=== PATIENT | female | born 1955 | race Two or more races ===

== ENCOUNTER 2016-10-21 02:59 | Inpatient (IN) | payer BC ==
[2016-10-21] MEDS ORDERED: ONDANSETRON HCL INJ/PF 4 MG/2 ML SDV IV ONE ×2 (03:49→07:10)
[2016-10-21] MEDS ORDERED: NORMAL SALINE 1000 ML 1,000 ML IV ONE (03:49)
[2016-10-21] MEDS ORDERED: MORPHINE SULFATE 10 MG/ML INJ IV ONE (03:49)
[2016-10-21 04:27] LABS: ABSOLUTE BASOPHILS # (AUTO) 0.1 10^3/uL (0.0-0.2); ABSOLUTE MONOCYTES (AUTO) 0.7 10^3/uL (0.1-1.4); ABSOLUTE NEUT (AUTO) 14.3 10^3/uL (1.7-8.2); BASOPHILS % (AUTO) 0.4 % (0-2); EOSINOPHILS % (AUTO) 0.2 % (0-6); HEMATOCRIT 46.4 % (36.0-47.0); HEMOGLOBIN 15.7 g/dL (12.0-15.5); HGB HCT DIFFERENCE 0.7; LYMPHOCYTES % (AUTO) 5.9 % (13-45); MEAN CORPUSCULAR HEMOGLOBIN 30.3 pg (27.0-33.4); MEAN CORPUSCULAR HGB CONC 33.9 g/dL (32.0-36.0); MEAN CORPUSCULAR VOLUME 89 fl (80-97); MONOCYTES % (AUTO) 4.4 % (3-13); RED BLOOD COUNT 5.19 10^6/uL (3.72-5.28); RED CELL DISTRIBUTION WIDTH 13.2 % (11.5-14.0); SEGMENTED NEUTROPHILS % (AUTO) 89.1 % (42-78); WHITE BLOOD COUNT 16.1 10^3/uL (4.0-10.5)
--- NOTE | 2016-10-21 04:39 | ER Document Report ---
ED GI/ - General TRAVEL OUTSIDE OF THE [place] IN LAST 30 DAYS: No <NIDHI MATOS - Last Filed: 10/21/16 07:18> <LAURA MACK - Last Filed: 10/21/16 09:22> - General Chief Complaint: Abdominal Pain Stated Complaint: ABDOMINAL PAIN Notes: Patient is a 60-year-old female that comes emergency department for chief complaint of sharp lower abdominal pain with nausea and vomiting 2, patient states she awoke from sleep tonight with the pain. Patient denies any fever or chills, states she had a normal bowel movement earlier today. Patient denies blood in the vomit. Patient has had a total hysterectomy, past medical history of hypertension, melanoma removal. (NIDHI MATOS) - Related Data Allergies/Adverse Reactions: No Known Drug Allergies Allergy (Verified 03/10/15 12:41) Past Medical History - General Information source: Patient - Social History Smoking Status: Never Smoker Frequency of alcohol use: None Lives with: Alone Family History: Arthritis, Malignancy Patient has suicidal ideation: No Patient has homicidal ideation: No - Past Medical History Cardiac Medical History: Reports: Hx Hypertension Denies: Hx Coronary Artery Disease, Hx Heart Attack Pulmonary Medical History: Denies: Hx Asthma, Hx Bronchitis, Hx COPD, Hx Pneumonia Neurological Medical History: Denies: Hx Cerebrovascular Accident, Hx Seizures Renal/ Medical History: Denies: Hx Peritoneal Dialysis Malignancy Medical History: Reports: Hx Cervical Cancer, Hx Skin Cancer - melanoma Musculoskeltal Medical History: Reports Hx Arthritis - GENERALIZED , Reports Hx Musculoskeletal Trauma Past Surgical History: Reports: Hx Hysterectomy. Denies: Hx Pacemaker - Immunizations Immunizations up to date: Yes Hx Diphtheria, Pertussis, Tetanus Vaccination: Yes <NIDHI MATOS - Last Filed: 10/21/16 07:18> Review of Systems - Review of Systems Constitutional: No symptoms reported EENT: No symptoms reported Cardiovascular: No symptoms reported Respiratory: No symptoms reported Gastrointestinal: See HPI Genitourinary: No symptoms reported Female Genitourinary: No symptoms reported Musculoskeletal: No symptoms reported Skin: No symptoms reported Hematologic/Lymphatic: No symptoms reported Neurological/Psychological: No symptoms reported <NIDHI MATOS - Last Filed: 10/21/16 07:18> Physical Exam - Vital signs Interpretation: Normal - General General appearance: Alert, Anxious In distress: Moderate - Patient holding her abdomen, rolled onto her side, appears to be in pain - HEENT Head: Normocephalic, Atraumatic Eyes: Normal Conjunctiva: Normal Extraocular movements intact: Yes Eyelashes: Normal Pupils: PERRL Sinus: Normal Nasal: Normal Mouth/Lips: Normal Mucous membranes: Dry Pharynx: Normal Neck: Normal - Respiratory Respiratory status: No respiratory distress Chest status: Nontender Breath sounds: Normal Chest palpation: Normal - Cardiovascular Rhythm: Regular, Tachycardia Heart sounds: Normal auscultation, S1 appreciated, S2 appreciated Murmur: No - Abdominal Inspection: Normal Distension: No distension Bowel sounds: Normal Tenderness: Tender - Patient has mild tenderness over the abdomen generally, she has specific guarding at McBurney's point, no rebound tenderness, McBurney' s point - Back Back: Normal, Nontender. No: Tender, CVA tenderness - Extremities General upper extremity: Normal inspection, Nontender, Normal ROM, Normal strength General lower extremity: Normal inspection, Nontender, Normal ROM, Normal strength - Neurological Neuro grossly intact: Yes Cognition: Normal Orientation: AAOx4 Judith Coma Scale Eye Opening: Spontaneous Judith Coma Scale Verbal: Oriented Judith Coma Scale Motor: Obeys Commands Judith Coma Scale Total: 15 Speech: Normal Motor strength normal: LUE, RUE, LLE, RLE Sensory: Normal - Psychological Associated symptoms: Agitated - Skin Skin Temperature: Warm Skin Moisture: Dry Skin Color: Normal <NIDHI MATOS - Last Filed: 10/21/16 07:18> Course - Laboratory Result Diagrams: 10/21/16 04:15 10/21/16 04:15 <NIDHI MATOS - Last Filed: 10/21/16 07:18> - Laboratory Result Diagrams: 10/21/16 04:15 10/21/16 04:15 <LAURA MACK - Last Filed: 10/21/16 09:22> - Re-evaluation Re-evalutation: Leukocytosis at 16.1 with elevation of neutrophils, chemistry unremarkable other than mild hyperglycemia, urinalysis is still pending. Patient with generalized tenderness of the abdomen except for specific right lower quadrant tenderness at McBurney's point, concern for possible appendicitis , CAT scan pending. Discussed with Dr. Hunt per [facility] guidelines. Patient very comfortable on reevaluation, states she feels great. 10/21/16 07:18 Introduced to Laura SAHWP at bedside, patient states she became nauseated and vomited once, given more Zofran, patient will go to CAT scan soon. Pending disposition based on CAT scan findings. (NIDHI MATOS) 10/21/16 08:35 Patient hemodynamically stable, in no distress. States nausea/vomiting improved after Zofran. CT scan of abdomen and pelvis shows concern for ileus or small bowel obstruction. Patient presentation and findings were discussed with surgeon Dr. Huddlesotn who recommends NG tube insertion and agrees to evaluate patient in the emergency department and assume care of patient/admit to inpatient unit. Findings and plan discussed with patient who verbalized understanding and agrees with plan. (LAURA MACK) - Vital Signs Vital signs: Temp Pulse Resp BP Pulse Ox 97.3 F 127 H 25 H 145/99 H 98 10/21/16 03:02 10/21/16 03:02 10/21/16 03:02 10/21/16 03:02 10/21/16 03:02 (NIDHI MATOS) ([facility]) - Laboratory Laboratory results interpreted by me: 10/21/16 10/21/16 10/21/16 04:15 04:15 07:05 WBC 16.1 H Hgb 15.7 H Seg Neutrophils % 89.1 H Lymphocytes % 5.9 L Absolute Neutrophils 14.3 H Glucose 184 H Urine Ketones TRACE H Urine Ascorbic Acid 40 H (NIDHI MATOS) ([facility]) Discharge <NIDHI MATOS - Last Filed: 10/21/16 07:18> - Discharge Admitting Provider: Surgicalist - [facility] Unit Admitted: Surgical Floor <LAURA MACK - Last Filed: 10/21/16 09:22> - Discharge Clinical Impression: Vomiting Qualifiers: Vomiting type: unspecified Vomiting Intractability: non-intractable Nausea presence: with nausea Qualified Code(s): R11.2 - Nausea with vomiting, unspecified Abdominal pain Qualifiers: Abdominal location: right lower quadrant Qualified Code(s): R10.31 - Right lower quadrant pain Condition: Stable Disposition: ADMITTED INPATIENT Referrals: CORNEL ERIC MD [Primary Care Provider] - Follow up as needed
[2016-10-21 04:41] LABS: ALANINE AMINOTRANSFERASE 36 U/L (9-52); ALBUMIN 4.8 g/dL (3.5-5.0); ALKALINE PHOSPHATASE 86 U/L (38-126); ANION GAP 15 (5-19); ASPARTATE AMINO TRANSFERASE 26 U/L (14-36); BILIRUBIN,TOTAL 0.8 mg/dL (0.2-1.3); BLOOD UREA NITROGEN 18 mg/dL (7-20); CALCIUM 10.2 mg/dL (8.4-10.2); CARBON DIOXIDE 24 mmol/L (22-30); CHLORIDE 103 mmol/L (98-107); CREATININE RESULT 0.88 mg/dL (0.52-1.25); GLUCOSE 184 mg/dL (75-110); POTASSIUM 4.6 mmol/L (3.6-5.0); SODIUM 141.6 mmol/L (137-145); TOTAL PROTEIN 7.9 g/dL (6.3-8.2)
[2016-10-21 07:47] LABS: APPEARANCE,URINE SLIGHTLY-CLOUDY; BILIRUBIN,URINE NEGATIVE (NEGATIVE); GLUCOSE, URINE NEGATIVE (NEGATIVE); KETONES,URINE TRACE mg/dL (NEGATIVE); LEUKOCYTE ESTERASE,URINE NEGATIVE (NEGATIVE); NITRITE,URINE NEGATIVE (NEGATIVE); PROTEIN,URINE NEGATIVE (NEGATIVE); URINE SPECIFIC GRAVITY 1.025; UROBILINOGEN,URINE NEGATIVE mg/dL (<2.0)
--- NOTE | 2016-10-21 09:13 | PDOC H&P ---
History of Present Illness Admission Date/PCP: CORNEL ERIC MD Patient complains of: Abdominal pain and nausea or vomiting History of Present Illness: SADIE VILLA is a 60 year old female With history of total abdominal hysterectomy and bilateral Springle for ectomy for cervical cancer over 10 years ago now presenting with one-day history of abdominal bloating with nausea and vomiting and crampy abdominal pain. Her symptoms began late last night. She had a bowel movement that was normal earlier in the day. Patient apparently has been feeling well up until last night. Denies any prior history of this sort of symptoms. Currently she is asymptomatic with no abdominal pain and she is passing gas. Past Medical History Cardiac Medical History: Reports: Hyperlipidema, Hypertension Denies: Coronary Artery Disease, Myocardial Infarction Pulmonary Medical History: Denies: Asthma, Bronchitis, Chronic Obstructive Pulmonary Disease (COPD), Pneumonia Neurological Medical History: Denies: Seizures Malignancy Medical History: Reports: Cervical Cancer, Skin Cancer - melanoma of the left arm 20 year ago. Patient underwent vaccine treatment. Musculoskeltal Medical History: Reports: Arthritis - GENERALIZED Hematology: Denies: Anemia Past Surgical History Past Surgical History: Reports: Hysterectomy, Orthopedic Surgery - Right rotator cuff surgery and left the knee meniscal surgery Denies: Pacemaker Social History Lives with: Alone Smoking Status: Former Smoker - Quit in 2005. Frequency of Alcohol Use: Rare Family History Family History: Arthritis, Malignancy Parental Family History Reviewed: No Children Family History Reviewed: No Sibling(s) Family History Reviewed.: No Medication/Allergy Home Medications: Lisinopril [Prinivil 20 mg Tablet] 20 mg PO QHS 04/27/12 Diphenhydramine HCl [Z-Sleep] 30 ml PO QHS PRN 03/06/15 Famotidine [Pepcid AC] 1 tab PO DAILY PRN 03/06/15 Gluc 2Kcl/Chondr/Lily Hy/Hy AC [Glucosamine & Chondroitin Cap] 2 cap PO BID 10/20 Loratadine [Claritin 10 mg Tablet] 1 tab PO DAILY 03/06/15 Multivitamin [Multivitamins] 2 tab PO DAILY 03/06/15 Ondansetron [Zofran Odt 4 mg Tablet] 1 tab PO ASDIR PRN 03/10/15 Oxycodone HCl 5 mg PO ASDIR PRN 03/10/15 Allergies/Adverse Reactions: No Known Drug Allergies Allergy (Verified 03/10/15 12:41) Physical Exam Vital Signs: Temp Pulse Resp BP Pulse Ox 97.3 F 127 H 25 H 145/99 H 98 10/21/16 03:02 10/21/16 03:02 10/21/16 03:02 10/21/16 03:02 10/21/16 03:02 Intake & Output 10/20/16 10/21/16 10/22/16 06:59 06:59 06:59 Weight 68.039 kg General appearance: PRESENT: no acute distress Neck exam: PRESENT: other - Supple with no tenderness. Respiratory exam: PRESENT: clear to auscultation dionte Cardiovascular exam: PRESENT: RRR GI/Abdominal exam: PRESENT: other - Soft, mildly distended, very mild diffuse abdominal tenderness with no peritoneal signs. Hyperactive high-pitched bowel sounds. Extremities exam: PRESENT: other - No swelling no tenderness Neurological exam: PRESENT: alert, awake Psychiatric exam: PRESENT: appropriate affect Skin exam: PRESENT: warm Results Laboratory Results: 10/21/16 04:15 10/21/16 04:15 10/21/16 10/21/16 10/21/16 04:15 04:15 07:05 WBC 16.1 H RBC 5.19 Hgb 15.7 H Hct 46.4 MCV 89 MCH 30.3 MCHC 33.9 RDW 13.2 Plt Count 255 Seg Neutrophils % 89.1 H Lymphocytes % 5.9 L Monocytes % 4.4 Eosinophils % 0.2 Basophils % 0.4 Absolute Neutrophils 14.3 H Absolute Lymphocytes 1.0 Absolute Monocytes 0.7 Absolute Eosinophils 0.0 Absolute Basophils 0.1 Sodium 141.6 Potassium 4.6 Chloride 103 Carbon Dioxide 24 Anion Gap 15 BUN 18 Creatinine 0.88 Est GFR ( Amer) > 60 Est GFR (Non-Af Amer) > 60 Glucose 184 H Calcium 10.2 Total Bilirubin 0.8 AST 26 ALT 36 Alkaline Phosphatase 86 Total Protein 7.9 Albumin 4.8 Urine Color YELLOW Urine Appearance SLIGHTLY-CLOUDY Urine pH 6.0 Ur Specific [place] 1.025 Urine Protein NEGATIVE Urine Glucose (UA) NEGATIVE Urine Ketones TRACE H Urine Blood NEGATIVE Urine Nitrite NEGATIVE Ur Leukocyte Esterase NEGATIVE Urine WBC (Auto) 1 Urine RBC (Auto) 1 Impressions: Abdomen/Pelvis CT 10/21/16 00:00 IMPRESSION: Ileus or partial small bowel obstruction. Assessment & Plan - Diagnosis (1) Partial small bowel obstruction Is this a current diagnosis for this admission?: YesPlan: May already be resolving. Will hold off NG tube since she is passing gas and she has minimal symptoms at this time. Will admit the patient placed on IV fluids. If she has recurrent emesis will place NG tube.
[2016-10-21] MEDS ORDERED: ENOXAPARIN SODIUM INJ 40 MG/0.4 ML DISP.SYRIN SUBCUT ONE (10:00)
[2016-10-21] MEDS ORDERED: ACETAMINOPHEN 325 MG TABLET ONE (11:39)
[2016-10-21] MEDS: FAMOTIDINE INJ/PF 20 MG/2 ML SDV IV SCH ×2 (11:57→21:03)
[2016-10-21] MEDS ORDERED: ACETAMINOPHEN 325 MG TABLET PO PRN (12:13)
[2016-10-21] MEDS: ONDANSETRON 4 MG TAB.RAPDIS PO PRN ×2 (14:12→18:40)
[2016-10-21] MEDS: DEXTROSE 5%-1/2 NORMAL SALINE 1,000 ML IV PRN (15:11)
--- NOTE | 2016-10-21 16:30 | PDOC PROGRESS REPORT ---
Subjective Progress Note for:: 10/21/16 Subjective:: Had nausea and vomiting but no abdominal pain. NG tube place since she was vomiting. Passing a little bit of gas. Physical Exam Vital Signs: Temp Pulse Resp BP Pulse Ox 97.8 F 83 18 122/65 99 10/21/16 11:26 10/21/16 11:26 10/21/16 11:26 10/21/16 11:26 10/21/16 11:26 Intake & Output 10/20/16 10/21/16 10/22/16 06:59 06:59 06:59 Weight 69.5 kg GI/Abdominal exam: PRESENT: other - Soft, mildly distended, nontender to palpation. Results Impressions: Abdomen/Pelvis CT 10/21/16 00:00 IMPRESSION: Ileus or partial small bowel obstruction. KUB X-Ray 10/21/16 00:00 IMPRESSION: Contrast is visualized throughout the colon. Mild small-bowel distention centrally. The small bowel distention appears improved when compared to images from the CT done earlier the same day. Assessment & Plan - Diagnosis (1) Partial small bowel obstruction Is this a current diagnosis for this admission?: YesPlan: KUB demonstrates passage of contrast into the colon therefore low-grade partial small bowel obstruction at worst. Will keep the NG tube to suction overnight repeat her x-rays in the morning. Ambulate patient.
[2016-10-21] MEDS: MORPHINE SULFATE 10 MG/ML INJ IV PRN (19:41)
[2016-10-22] MEDS: DEXTROSE 5%-1/2 NORMAL SALINE 1,000 ML IV PRN ×2 (01:11→22:26)
[2016-10-22] MEDS: ONDANSETRON 4 MG TAB.RAPDIS PO PRN (01:11)
[2016-10-22 06:35] LABS: ANION GAP 8 (5-19); BLOOD UREA NITROGEN 7 mg/dL (7-20); CALCIUM 8.7 mg/dL (8.4-10.2); CARBON DIOXIDE 26 mmol/L (22-30); CHLORIDE 107 mmol/L (98-107); CREATININE RESULT 0.77 mg/dL (0.52-1.25); GLUCOSE 129 mg/dL (75-110); POTASSIUM 4.2 mmol/L (3.6-5.0)
[2016-10-22 06:40] LABS: HEMATOCRIT 39.2 % (36.0-47.0); HGB HCT DIFFERENCE 0.1; MEAN CORPUSCULAR HGB CONC 33.5 g/dL (32.0-36.0); MEAN CORPUSCULAR VOLUME 90 fl (80-97); RED BLOOD COUNT 4.38 10^6/uL (3.72-5.28); RED CELL DISTRIBUTION WIDTH 12.9 % (11.5-14.0); WHITE BLOOD COUNT 8.5 10^3/uL (4.0-10.5)
[2016-10-22 06:46] LABS: HEMOGLOBIN 13.1 g/dL (12.0-15.5)
[2016-10-22] MEDS: ENOXAPARIN SODIUM INJ 40 MG/0.4 ML DISP.SYRIN SUBCUT SCH (10:03)
[2016-10-22] MEDS: FAMOTIDINE INJ/PF 20 MG/2 ML SDV IV SCH ×2 (10:04→22:25)
--- NOTE | 2016-10-22 16:26 | PDOC PROGRESS REPORT ---
Subjective Subjective:: +bm, flatus. still having some nausea and retching, thinks its from the NG rubbing on her tonsils. Physical Exam Vital Signs: Temp Pulse Resp BP Pulse Ox 98.2 F 92 17 146/86 H 99 10/22/16 12:40 10/22/16 12:40 10/22/16 12:40 10/22/16 12:40 10/22/16 12:40 Intake & Output 10/21/16 10/22/16 10/23/16 06:59 06:59 06:59 Intake Total 0 1350 Output Total 3 Balance -3 1350 Weight 76 kg General appearance: PRESENT: no acute distress Head exam: PRESENT: normocephalic GI/Abdominal exam: PRESENT: normal bowel sounds, soft. ABSENT: distended, tenderness Neurological exam: PRESENT: alert, oriented to situation Psychiatric exam: PRESENT: appropriate affect, normal mood Results Laboratory Results: 10/22/16 05:57 10/22/16 05:57 10/22/16 10/22/16 05:57 05:57 WBC 8.5 RBC 4.38 Hgb 13.1 D Hct 39.2 MCV 90 MCH 30.0 MCHC 33.5 RDW 12.9 Plt Count 192 Sodium 141.0 Potassium 4.2 Chloride 107 Carbon Dioxide 26 Anion Gap 8 BUN 7 Creatinine 0.77 Est GFR ( Amer) > 60 Est GFR (Non-Af Amer) > 60 Glucose 129 H Calcium 8.7 Impressions: Abdomen/Pelvis CT 10/21/16 00:00 IMPRESSION: Ileus or partial small bowel obstruction. KUB X-Ray 10/21/16 00:00 IMPRESSION: Contrast is visualized throughout the colon. Mild small-bowel distention centrally. The small bowel distention appears improved when compared to images from the CT done earlier the same day. Abdomen X-Ray 10/22/16 06:00 IMPRESSION: Nonobstructive bowel gas pattern Status: Image reviewed by me Assessment & Plan - Diagnosis (1) Partial small bowel obstruction Is this a current diagnosis for this admission?: YesPlan: labs, film, exam better. +bm/flatus. NG removed. start clear liquids.
[2016-10-23] MEDS: ENOXAPARIN SODIUM INJ 40 MG/0.4 ML DISP.SYRIN SUBCUT SCH (08:46)
[2016-10-23] MEDS: MORPHINE SULFATE 10 MG/ML INJ IV PRN ×2 (09:02→12:33)
[2016-10-23] MEDS: ONDANSETRON 4 MG TAB.RAPDIS PO PRN ×2 (09:03→12:32)
[2016-10-23] MEDS: FAMOTIDINE INJ/PF 20 MG/2 ML SDV IV SCH ×2 (09:06→21:19)
[2016-10-23] MEDS: SIMETHICONE 80 MG TAB.CHEW PO PRN ×3 (10:41→23:49)
[2016-10-23] MEDS: DICYCLOMINE HCL 10 MG CAPSULE PO PRN ×3 (10:41→23:49)
[2016-10-23] MEDS ORDERED: MORPHINE SULFATE 10 MG/ML INJ IV PRN (13:00)
[2016-10-23] MEDS: DEXTROSE 5%-1/2 NORMAL SALINE 1,000 ML IV PRN (15:00)
[2016-10-23] MEDS ORDERED: HYDROMORPHONE HCL INJ/PF 2 MG/ML AMPULE IV PRN (15:34)
--- NOTE | 2016-10-23 15:53 | PDOC PROGRESS REPORT ---
Subjective Subjective:: Small BM this morning. Also had some nausea and vomiting after the pain medication. Wondering if she is reacting to they morphine. and the daughter via the are asking about hydromorphone. Had severe crampy gas pains earlier which was migratory throughout her abdomen. Physical Exam Vital Signs: Temp Pulse Resp BP Pulse Ox 97.8 F 70 18 148/88 H 100 10/23/16 12:00 10/23/16 12:00 10/23/16 12:00 10/23/16 12:00 10/23/16 12:00 Intake & Output 10/22/16 10/23/16 10/24/16 06:59 06:59 06:59 Intake Total 100 2032 Balance 100 2032 Weight 70.3 kg General appearance: PRESENT: no acute distress Head exam: PRESENT: normocephalic GI/Abdominal exam: PRESENT: soft, tenderness - Minimal midabdominal tenderness, otherwise benign. Some bowel sounds.. ABSENT: distended Neurological exam: PRESENT: alert, oriented to situation Skin exam: ABSENT: jaundice Results Impressions: KUB X-Ray 10/23/16 00:00 IMPRESSION: Single borderline dilated small bowel loop in the mid epigastrium. Oral contrast for CT 10/21/2016 is otherwise seen in the colon Status: Image reviewed by me Assessment & Plan - Diagnosis (1) Partial small bowel obstruction Is this a current diagnosis for this admission?: YesPlan: Nausea and retching after morphine, we will discontinue this and switch to dilated. Was ambulating. Had a small BM. She is burping some. Her crampy abdominal pain from earlier has resolved. Caution to go slow with her diet. Labs in the morning. Great amount of time spent again today discussing pathophysiology of small bowel obstructions, answering questions, discussing imaging studies.
[2016-10-24] MEDS ORDERED: NALOXONE HCL INJ/PF 0.4 MG/1 ML SDV ONE (03:53)
[2016-10-24] MEDS ORDERED: PHENYLEPHRINE HCL INJ/PF 10 MG/1 ML SDV ONE ×3 (03:58→15:12)
[2016-10-24] MEDS ORDERED: DEXTROSE 5%-WATER 250 ML with PHENYLEPHRINE HCL 40 MG IV PRN ×2 (04:11)
[2016-10-24] MEDS ORDERED: NALOXONE HCL INJ/PF 0.4 MG/1 ML SDV IV ONE (04:15)
[2016-10-24] MEDS ORDERED: RINGERS SOLUTION,LACTATED 3,000 ML IV ONE (04:15)
[2016-10-24 04:27] LABS: HEMATOCRIT 27.4 % (36.0-47.0); HGB HCT DIFFERENCE -0.7; MEAN CORPUSCULAR HEMOGLOBIN 29.7 pg (27.0-33.4); MEAN CORPUSCULAR HGB CONC 32.3 g/dL (32.0-36.0); MEAN CORPUSCULAR VOLUME 92 fl (80-97); RED BLOOD COUNT 2.98 10^6/uL (3.72-5.28); RED CELL DISTRIBUTION WIDTH 13.1 % (11.5-14.0)
[2016-10-24 04:33] LABS: PROTHROMBIN TIME 14.3 SEC (11.4-15.4)
[2016-10-24 04:41] LABS: ALANINE AMINOTRANSFERASE 39 U/L (9-52); ALBUMIN 2.5 g/dL (3.5-5.0); ALKALINE PHOSPHATASE 53 U/L (38-126); ANION GAP 14 (5-19); ASPARTATE AMINO TRANSFERASE 32 U/L (14-36); BILIRUBIN,TOTAL 0.6 mg/dL (0.2-1.3); BLOOD UREA NITROGEN 8 mg/dL (7-20); CALCIUM 8.3 mg/dL (8.4-10.2); CARBON DIOXIDE 19 mmol/L (22-30); CHLORIDE 104 mmol/L (98-107); CREATININE RESULT 1.23 mg/dL (0.52-1.25); GLUCOSE 246 mg/dL (75-110); LIPASE 66.7 U/L (23-300); POTASSIUM 3.4 mmol/L (3.6-5.0); TOTAL PROTEIN 5.3 g/dL (6.3-8.2)
[2016-10-24 04:42] LABS: AMYLASE < 30 U/L (30-110)
[2016-10-24 04:46] LABS: ARTERIAL BLOOD BASE EXCESS -6.6 mmol/L; ARTERIAL BLOOD O2 SATURATION 99.1 % (94-98)
[2016-10-24 04:53] LABS: WHITE BLOOD COUNT 21.4 10^3/uL (4.0-10.5)
[2016-10-24 04:54] LABS: HEMOGLOBIN 8.9 g/dL (12.0-15.5)
[2016-10-24] MEDS ORDERED: FENTANYL CITRATE INJ/PF 250 MCG/5 ML AMPULE ONE ×2 (05:06→06:48)
[2016-10-24] MEDS ORDERED: MIDAZOLAM 2 MG/2 ML INJ ONE (05:06)
[2016-10-24] MEDS ORDERED: MORPHINE SULFATE 10 MG/ML INJ ONE (05:07)
[2016-10-24] MEDS ORDERED: EPHEDRINE SULFATE INJ 50 MG/1 ML AMPULE ONE (05:07)
[2016-10-24] MEDS ORDERED: PROPOFOL INJ 200 MG/20 ML VIAL IV ONE (05:07)
[2016-10-24] MEDS ORDERED: ACETAMINOPHEN 0 ML IV ONE (05:07)
[2016-10-24] MEDS ORDERED: DEXMEDETOMIDINE INJ 80 MCG/20 ML VIAL IV ONE (05:07)
[2016-10-24] MEDS ORDERED: AMPICILLIN SOD/SULBACTAM 1.5 GM VIAL ONE (05:27)
[2016-10-24] MEDS ORDERED: THROMBIN (BOVINE) TOPICAL 5000 UNIT VIAL ONE ×2 (06:36)
[2016-10-24] MEDS ORDERED: THROMBIN (BOVINE) 5000 UNIT EPITAXIS KIT ONE (06:36)
[2016-10-24] MEDS ORDERED: THROMBIN (BOVINE) TOPICAL 20000 UNIT VIAL ONE (06:36)
[2016-10-24 06:43] VITALS: BP 95/56
--- NOTE | 2016-10-24 10:05 | Operative Report ---
Operative Report DATE OF SURGERY: 10/24/16 PREOPERATIVE DIAGNOSIS: Shock, Probable major abdominal bleed. POSTOPERATIVE DIAGNOSIS: 1. Shock. 2. Intra-abdominal bleed from the vasculature near the root of the mesenteric vessels and the vasculature of the pancreaticoduodenal complex. 3. Massive retroperitoneal hematoma. OPERATION: Exploratory laparotomy with ligation of major bleeding from the vasculature near the root of the mesenteric vessels and the vasculature of the pancreaticoduodenal complex. SURGEON: CATHY LINDA 1ST SHUTTLER CAR: ROSEANNE WADSWORTH ANESTHESIA: GA TISSUE REMOVED OR ALTERED: Patient remained in critical condition and was transferred to [facility] via air care with a temporary abdominal closure/VAC device in place. COMPLICATIONS: None noted. ESTIMATED BLOOD LOSS: in excess of 2 L INTRAOPERATIVE FINDINGS: 1. Shock. 2. Major intra-abdominal bleeding from the vasculature near the root of the mesenteric vessels and the vasculature of the pancreaticoduodenal complex. 3. Massive retroperitoneal hematoma. PROCEDURE: Dr. Wadsworth joined ar as co-surgeon through the entire case. His assistance was critical. The patient was brought to the operative suite emergently from the ICU. She was placed on the OR table in the supine position. Antibiotics were administered, SCDs were placed, padding positioning was appropriate, the patient was induced and intubated and maintained on general endotracheal anesthesia. Osullivan catheter was placed. Massive transfusion protocol had been initiated and resuscitation was ongoing throughout the case. The patient was prepped and draped in sterile fashion. A midline incision from the xiphoid down to the pubic symphysis was made with a 10 blade and then continued down to the fascia with electrocautery. Fascia was divided with cautery and then the peritoneal cavity was entered bluntly with a peon forceps. A finger was inserted and the incision was extended over a finger to protect underlying contents. There was massive blood and hematoma in the abdominal cavity. The right upper quadrant and the root of the mesentery was packed and pressure was held. A massive amount of blood was evacuated from the abdominal cavity. The patient lost in excess of 2 L of blood. Once blood and hematoma had been removed from the abdominal cavity and the hemorrhage was transiently controlled with pressure and packing, it appeared as though the left upper quadrant, the lower abdomen and pelvis were not involved. There was massive retroperitoneal hematoma at the root of mesentery and this appeared to be where the bleeding was emanating from. Bookwalter retractor was used. The right colon was mobilized along the white line of Toldt using blunt and sharp dissection as well as electrocautery. The mesentery of the transverse colon had a rent in it near the base where the source of the bleeding was and where packs were held. At some point the falciform ligament was divided between ties and the residual falciform attachments over the dome the liver were divided as well. As the mobilization of the right colon was continued and it was rotated medially, the leading at the base of the mesentery was packed and pressure was held from 2 approaches, one from above, and one approaching from right lateral to medial, placing packs and sandwiching the bleeding from the base of the mesentery, and pancreatic head. What appeared to be venous bleeding from the mesenteric vasculature emerging from the bottom of the neck of the appendix was further dissected and 3 robustly bleeding veins were identified and ligated with 3-0 silk ties. These appeared to be very proximal branches of the SMV. The cattell braasch maneuver was further completed by kocherizing the duodenum. At one point bleeding veins the patient lost perfusing pressure and pressure was held on the aorta on the underside of the liver while anesthesias resuscitation continued. Once the bleeding from these vessels was controlled, the patient regained excellent perfusing pressure. The abdominal cavity was surveyed and there was minor bleeding at the base of the mesentery of the ileocecum. This was controlled with small clips and cautery. The bleeding seemed to be controlled and Surgifoam soaked in thrombin was placed both at the base of the mesentery the ileocecum as well as the base of the mesentery/neck of the pancreas. The abdomen was irrigated and residual fluid was suctioned from the abdominal cavity. Suddenly, there was robust bleeding again from the base of the mesentery/pancreaticoduodenal complex. Packs and pressure were held and massive amounts of blood were suctioned and removed from the abdominal cavity. Aortic pressure was again held while anesthesia conducted aggressive resuscitation. The packs were gradually removed and specific bleeding from the head of the pancreas was identified and controlled with more precise pressure. Good pressures returned and aortic pressure was released. Bleeding points just to the right of the SMV and splenic vein confluence into the portal vein, additional bleeding points which appeared to be venous branches were identified , controlled with right angle clamps and ligated with 20 and 3-0 silk ties. Bleeding from the head of the pancreas was controlled with multiple 3-0 PDS [id number] hemostatic sutures. The bleeding seemed to be controlled, and the abdominal cavity was surveyed, irrigated and suctioned. Thrombin-soaked Gelfoam was placed. There was some nonsurgical bleeding from the posterior aspect of the right lobe of the liver which was packed with a blue surgical towel. The liver had changed from a pale color to a well-perfused appearance to a somewhat congested appearance. The remainder of the abdomen was inspected and was hemostatic. The bowel was inspected and although there was extensive hematoma and bruising throughout the mesentery, all the bowel appeared to be viable and normal except for the hematoma. The patient had good pressures. The NG tube was checked and was in good position. The patient had now demonstrated hemostasis for an extended amount of time and the decision was made to place a temporary abdominal closure. Air care had been notified and was waiting outside the operating room for transfer. The absent or a temporary abdominal closure device was placed, first the intra-abdominal portion between the peritoneum and the underlying visceral contents, then the ellipse/football- shaped foam pieces, then the occlusive outer wraps, then a [place] was cut in the center of the occlusive outer wraps and the VAC suction hose piece was attached. This was attached to a portable wound VAC device and 125 mm of continuous suction was applied with a good seal. The patient was maintaining blood pressures in the 110s. The patient was transferred to the air care [facility] , taken from the OR directly to the helicopter. Patient remained in critical condition and was transferred to [facility] via air care with a temporary abdominal closure/VAC device in place. There was a blue surgical towel packed on the inferior aspect of the right lobe of the liver. I spoke with patient's at length about the surgery and the findings, while Dr. Wadsworth spoke with the receiving surgeon at [facility] describing the same.
--- NOTE | 2016-10-24 10:18 | PDOC TRANSFER SUMMARY ---
General Admission Date/PCP: 10/21/2016. Admission Date: 10/21/16 Transfer Date: 10/24/16 Accepting Facility: [facility] Resuscitation Status: Full Code - Transfer Diagnosis (1) Partial small bowel obstruction Is this a current diagnosis for this admission?: Yes (2) Intraabdominal hemorrhage Is this a current diagnosis for this admission?: Yes - Transfer Medications Home Medications: Diphenhydramine HCl [Z-Sleep] 30 ml PO QHS PRN 03/06/15 Loratadine [Claritin 10 mg Tablet] 1 tab PO DAILY PRN 03/06/15 Multivitamin [Multivitamins] 2 tab PO DAILY 03/06/15 Transfer Medications: Current Medications Acetaminophen (Tylenol 325 Mg Tablet) 325 mg PO Q4HP PRN PRN Reason: PAIN Stop: 11/20/16 12:12 Last Admin: 10/22/16 22:25 Dose: 325 mg Dicyclomine HCl (Bentyl 10 Mg Capsule) 10 mg PO QIDP PRN PRN Reason: FOR PAIN SCALE 1-3 Stop: 11/22/16 10:02 Last Admin: 10/23/16 23:49 Dose: 10 mg Enoxaparin Sodium (Lovenox Inj 40 Mg/0.4 Ml Disp.Syrin) 40 mg SUBCUT QAM CARMEN Stop: 11/21/16 07:59 Last Admin: 10/23/16 08:46 Dose: Not Given Famotidine (Pepcid Inj/Pf 20 Mg/2 Ml Sdv) 20 mg IV Q12 CARMEN Stop: 11/20/16 09:59 Last Admin: 10/23/16 21:19 Dose: 20 mg Hydromorphone HCl (Dilaudid Inj/Pf 2 Mg/Ml Ampule) 0.5 mg IV Q2HP PRN PRN Reason: PAIN Stop: 10/30/16 15:33 Last Admin: 10/23/16 23:48 Dose: 0.5 mg Dextrose/Sodium Chloride (D5-1/2ns 1000 Ml Iv Soln) 1,000 mls @ 100 mls/hr IV CONTINUOUS PRN PRN Reason: THIS MED IS NOT "PRN" Stop: 11/20/16 09:12 Last Admin: 10/23/16 15:00 Dose: 1,000 ml Hard Fat/Phenylephrine 40 mg/ (Dextrose) 250 mls @ 0 mls/hr IV CONTINUOUS PRN; Protocol; Titrate PRN Reason: THIS MED IS NOT "PRN" Stop: 11/23/16 04:10 Last Admin: 10/24/16 04:00 Dose: 40 mg Ondansetron HCl (Zofran Odt 4 Mg Tablet) 4 mg PO Q4HP PRN PRN Reason: NAUSEA/VOMITING Stop: 11/20/16 09:12 Last Admin: 10/23/16 12:32 Dose: 4 mg Simethicone (Mylicon 80 Mg Chewable Tablet) 80 mg PO QIDP PRN PRN Reason: FOR GAS (FLATULENCE) Stop: 11/22/16 10:06 Last Admin: 10/23/16 23:49 Dose: 80 mg Sodium Chloride (Saline Flush 2.5 Ml Monoject Prefil Syrin) 2.5 ml IV Q8 CARMEN Stop: 11/20/16 13:59 Last Admin: 10/23/16 21:19 Dose: Not Given - Allergies Allergies/Adverse Reactions: No Known Drug Allergies Allergy (Verified 03/10/15 12:41) - Diet/Activity Discharge Diet: Other (Comments) - Nothing by mouth Discharge Activity: Other - Critically ill, intubated and sedated. Hospital Course Hospital Course: Jc Beavers is a 60-year-old white female. She presented the emergency room with nausea and vomiting and abdominal pain. Her white count was 16.5. A CT scan was done with oral and IV contrast which showed bowel obstruction. She was admitted and managed with nothing by mouth status, IV fluids, NG tube to low intermittent suction. The following day, 10/22/2016, her white count had decreased to normal range, she had flatus and stools and her abdominal pain had improved significantly. X-ray was done which showed resolution of the small bowel obstruction. NG tube was removed late in the day. On 10/23/2016, she had another small bowel movement, she was on a clear diet, and earlier in the day had some migratory cramping abdominal pain which resolved with walking, pain medication and Bentyl. X-ray showed one possibly a dilated small bowel loop in the epigastrium, but progression of contrast through the colon. Then, at 3:20 AM on 10/24/2016, the patient was found on the floor in her room with decreased consciousness. The patient was given a stat CT scan of the head, abdomen and pelvis and transferred to the ICU. She was found to be in shock with low blood pressures, tachycardia and decreased responsiveness. Massive fluid resuscitation was initiated and massive transfusion protocol was initiated as well. Central line was placed. The CT scan of the head was normal , but the CT scan of the abdomen and pelvis revealed a large inflammatory mass in her epigastrium and right upper quadrant believed to be consistent with a major intra-abdominal bleed. The patient was taken emergently to the operative suite where an exploratory laparotomy was performed. Major intra-abdominal bleeding was found at multiple points at the base of the mesentery/neck of the pancreas/head of the pancreas and duodenal complex. This was controlled and the patient was transferred with a temporary abdominal closure device, in critical condition to [facility]. During the resuscitation and surgery the patient received 13 units of packed red blood cells, 8 units of FFP, 2 units of cryoprecipitate, and 1 unit of platelets. The patient was sent with 5 units of packed red blood cells and [address] Hale was the accepting physician. Physical Exam Vital Signs: Temp Pulse Resp BP Pulse Ox 97.7 F 113 H 13 95/56 L 100 10/24/16 05:05 10/24/16 05:00 10/24/16 05:05 10/24/16 05:06 10/24/16 05:05 Intake & Output 10/23/16 10/24/16 10/25/16 06:59 06:59 06:59 Intake Total 100 3029 5000 Output Total 5000 Balance 100 3029 0 Weight 70.3 kg General appearance: PRESENT: other - Critically ill, intubated and sedated. Respiratory exam: PRESENT: other - On the ventilator. Cardiovascular exam: PRESENT: tachycardia - Tachycardia in the 100-110 range at the time of transfer. Vascular exam: PRESENT: normal capillary refill GI/Abdominal exam: PRESENT: other - Abdomen with midline incision from xiphoid process down to the pubic symphysis. A temporary abdominal closure/Abthera device was in place. A blue surgical towel was in the abdomen on the inferior aspect of the right lobe of the liver. Gentrourinary exam: PRESENT: indwelling catheter Extremities exam: PRESENT: other - SCDs were on throughout the entirety of the case, but were removed just before transfer as the helicopter had no means of activating them. Results Laboratory Results: 10/24/16 04:12 10/24/16 04:12 10/24/16 10/24/16 10/24/16 04:12 04:12 04:12 WBC 21.4 H D RBC 2.98 L Hgb 8.9 L D Hct 27.4 L MCV 92 MCH 29.7 MCHC 32.3 RDW 13.1 Plt Count 236 Carbonic Acid 0.92 L HCO3/H2CO3 Ratio 19:1 ABG pH 7.38 ABG pCO2 30.6 L ABG pO2 162.9 H ABG HCO3 17.7 L ABG O2 Saturation 99.1 H ABG Base Excess -6.6 FiO2 FLOW RATE 4 Sodium 137.0 Potassium 3.4 L Chloride 104 Carbon Dioxide 19 L Anion Gap 14 BUN 8 Creatinine 1.23 Est GFR ( Amer) 54 L Est GFR (Non-Af Amer) 45 L Glucose 246 H Calcium 8.3 L Total Bilirubin 0.6 AST 32 ALT 39 Alkaline Phosphatase 53 Total Protein 5.3 L Albumin 2.5 L Amylase < 30 L Lipase 66.7 Impressions: Abdomen X-Ray 10/22/16 06:00 IMPRESSION: Nonobstructive bowel gas pattern KUB X-Ray 10/23/16 00:00 IMPRESSION: Single borderline dilated small bowel loop in the mid epigastrium. Oral contrast for CT 10/21/2016 is otherwise seen in the colon Abdomen/Pelvis CT 10/24/16 00:00 IMPRESSION: Limited by the lack of intravascular contrast. Relative to CT imaging dated 21 October 2016, there has been the short interval development of a large, heterogeneous mass subjacent to the right hepatic lobe. This finding is most consistent with a large intra-abdominal hemorrhage, the etiology of which remains indeterminate at this time. Head CT 10/24/16 00:00 IMPRESSION: NORMAL BRAIN CT WITHOUT CONTRAST. Status: Image reviewed by me Plan Discharge Plan: Transfer to [facility]/ECU by air care.
--- NOTE | 2016-10-24 10:22 | PDOC PROGRESS REPORT ---
Bedside Procedure - Central Line Right Internal jugular Time completed: 04:00 Consent obtained: Yes Central line pre-insertion: Sterile PPE donned, Chloraprep applied, Sterile drapes applied Central line size (Fr.): 7 Central line lumen type: Triple Anesthetic type: 1% Lidocaine mL's of anesthesia: 5 Ultrasound guided: Yes CM at insertion site: 14 Line secured with sutures: Yes Central line post-insertion: Blood return from lumens, Biopatch applied, Sutured , Sterile dressing applied Number of attempts: 1 Complications: No Notes: Late entry. Timeout was performed. The patient was prepped and draped in normal sterile fashion. Ultrasound was used to identify the right internal jugular vein and right common carotid artery. The skin over the vein was infiltrated with local anesthetic. An 11 blade scalpel was used to make a skin rios. Under ultrasound guidance, a Cook needle was used to cannulate the right internal jugular vein with return of nonpulsatile dark red venous blood. Seldinger technique was used. The guidewire was placed. The Cook needle was removed. The tract was dilated. Catheter was placed over the guidewire. The guidewire was removed. All lumens easily aspirated and flushed. The catheter was sewn in place at the skin and at the end hub. A Biopatch was placed. A sterile dressing was placed. All sharps were accounted for and disposed of properly. The patient tolerated the procedure well. No postop chest x-ray was performed. Patient was transferred emergently to the operating room. 10/24/16 10:21
--- NOTE | 2016-10-24 10:36 | EKG REPORT ---
SEVERITY:- BORDERLINE ECG - SINUS TACHYCARDIA PROBABLE LEFT ATRIAL ABNORMALITY BORDERLINE T ABNORMALITIES, DIFFUSE LEADS LVH : Confirmed by: Puja Johnson 24-Oct-2016 10:35:44
[2016-10-24] MEDS ORDERED: ROCURONIUM BROMIDE INJ 50 MG/5 ML VIAL IV ONE (15:12)
--- NOTE | 2016-11-05 20:26 | Physician Advisory Note ---
Physician Advisor ProgressNote .: Pursuant to the plan for [facility], I have reviewed the medical record for this patient. Physician Advisor Statement: Asked by electrophysiology technician to review chart r.e. documentation needs before coding. Admittedly, this pt was in extremely critical condition at time of transfer, as is clear from what is already documented, and the attending had just saved her life, more than once, through his quick actions during a hair-raising operative course. The detail in the Op note is excellent. However, there are several points that need to be documented specifically & explicitly to the best of the attending's knowledge as a discharge summary addendum while the memory is still fresh. Diagnoses to document (as long as attending agrees): 1. "Hemorrhagic Shock" or "Traumatic Shock" 2. "Anemia of Acute Blood Loss due to intra-abdominal bleeding with hemoperitoneum" - and whether or not the attending believes there may have been any bleeding already going on at time of admission or not. 3. "Hemoperitoneum", or "traumatic hemoperitoneum" [the term "intra-abdominal hemorrhage" is not specific enough to be coded currently] - & state likely cause/mechanism of injury: blunt trauma from fall? spontaneous hemorrhage due to ____? colon perf due to obstruction? ... - & if you think any hemoperitoneum may have been present on admission, state that as well (electrophysiology technician has to have this explicit). 4. ? - "Mild Hypothermia" (Had temp 97.0 axillary when found on floor 10/24 AM. ) Other points to give explicit clarification in this case: 1. As best as you can tell from what you saw and what is documented, what was the cause of the multiple bleeding sites in the abdomen? A. In particular, do you suspect the blunt trauma of a possible fall to the floor in the hospital on 10/24 AM (from bed? from standing?) was the cause of the multiple bleeding sites? B. Would a fall such as this be sufficient to produce all the bleeding sites and the bruising throughout the mesentery described in op note? C. Or do you think the patient was having an acute abdominal process (specify type) that produced the bleeding, & that was already causing some bleeding before the patient ended up on the floor? - The electrophysiology technician will have to specify these details (cause, possibly present on admission or not) separately for each site, so if some sites of bleeding may have been due to 1 thing and others from another cause, please specify accordingly. 2. Pt was complaining of abd pain initially in ED, with need for morphine 5mg & then 3mg on 10/21, but then no PRN pain medicine on 10/22. - Then on 10/23 AM, although she had (+)bowel output, she was burping and had "Verdana 4Ud severe crampy pain that was migratory throughout" abdomen. - KUB on 10/23 showed 1 borderline dilated small bowel loop in the mid epigastrium. - She required morphine 3mg twice on 10/23 AM, & then there was an order to change the morphine from q4h prn to q2h prn at 13:00. Then the opioid order was changed to Dilaudid 0.5mg q2h prn, which was given at 23:48 and requested by pt again at 02:45 per nursing notes. - Given this apparent worsening of abdominal pain starting on 10/23 AM, what do you suspect was causing this? (worsening of PSBO? likely already starting to bleed into the retroperitoneal space/abdomen? or something else [specify]?) 3. Pt had not just a large amount of fresh blood in intraperitoneal abdomen but also a "massive retroperitoneal hematoma" when initially opened up. - Was the blood in the retroperitoneal hematoma coagulated or liquid? - How long would it likely take for this retroperitoneal hematoma to have developed / for that much blood to coagulate in this case? - Is this possible to have occurred in the 2-3 hours between patient's last call out to nursing for pain Rx and her surgery? Likely? - How likely, in this case, do you believe it would be for this patient to have developed all the intra-abdominal blood found at surgery with the bleeding starting around 3AM on 10/24 - vs likelihood it began to develop significantly prior to that? 4. Pt's previous baseline Hgb was 14.0 on 02/14/2015. Her first Hgb on 10/21/16 was 15.7 and her 2nd Hgb was 13.1 (24 hrs later). She was given 1L NS bolus in ED on 10/21 and then 100ml/hr IVF, so likely max 3.5L IVF total given between these 2 blood draws. Do you believe that the IVF given between her first Hgb and her 2nd Hgb were sufficient to produce this degree of Hgb drop from re-hydration alone, or, in considering all that you know about the case now in retrospect, do you think this H/H drop may support there having been some occult acute abdominal bleeding present during her 1st 24 hours of hospitalization? 5. From what you knew at time of transfer, do you believe the onset of the PSBO may have been related in any way to early occult abdominal bleeding being present prior to or at time of admission? 6. She required 18 units of PRBCs, 10 of plasma, 1 of plts, & 2 of cryoprecipitate, and remained in critical condition without evidence of fluid overload. Op report documented there was blood loss due to her multiple bleeding sites that was over 2.5L. Would you like to give a more specific amount of likely blood loss total to better capture just how serious her hemorrhaging was during this admission? 7. Pt was receiving Lovenox during hospitalization, but only 40mg SubQ daily for DVT prophylaxis, as is advised in hospital patients at this time. Could this have caused or contributed to her developing bleeding in the first place, or very unlikely? Thanks so much for your help with documentation accuracy/specificity improvement ! Becky Ramos MD [facility] Physician Advisor, Fellow of Hospital Medicine ---- ----- Associated points from online literature review: Evaluating patients who have sustained blunt abdominal trauma remains one of the most challenging aspects of acute trauma care. Physical examination findings are notoriously unreliable as large amounts of blood can accumulate in the peritoneal and pelvic cavities without any significant or early changes in physical examination findings. Retroperitoneal bleeding secondary to interruption of lumbar and pelvic arteries are the most common cause of hemorrhagic shock from vertical deceleration injuries. Bleeding in the retroperitoneal tissue can present late following blunt abdominal trauma. It can be massive and lead to hemorrhagic shock. It should be among the differential diagnosis in patients with clinical diagnosis of hemorrhagic shock even in absence of evident history of trauma as rapid and prompt management decrease the mortality rate. - https://www.ncbi.nlm.nih.gov/pmc/articles/BNW4488780/ - J Emerg Trauma Shock . 2008-Apr; 2(2): 176255. doi: 10.2323/7397-5938.71613 PMCID: [id number] Delayed presentation of shock due to retroperitoneal hemorrhage following a fall Sukhwinder Jeong "Retroperitoneal bleed is an infrequent but serious complication of transfemoral -access catheterization procedure Etiologies: O Trauma blunt or penetrating injury O Spontaneous bleed on anticoagulation therapy O Iatrogenic Procedural (Catheterization) related . 0.1-0.9%" "Bleeding usually insiduous and unrecognized initially." "Clinical presentation is varied and most of the time vague." "Hemodynamic instability a Hypotension + tachycardia (unless on beta-lilli) that transiently improves with IVF predictive." "Patients who are stable, RP [retroperitoneal] bleed volume quantified by CT scan does not contribute to prognosis." http://www.nhv.org/pdf/[email or web address]%20NCVH//PDFs/[email or web address]_[email or web address].pdf Evaluation and Treatment of Suspected Retroperitoneal Bleeds Mahendra Calhoun MD Retroperitoneal hematoma is rare but with increasing incidence due to complications related to interventional procedures. Spontaneous retroperitoneal hematoma is generally seen in patients with anti-coagulation therapy [1]. Retroperitoneal bleeding caused by lumbar artery lesion is rare and mostly related to iatrogenic or trauma [2]. Aneurysm or anticoagulation therapy is the most common causes of non-traumatic bleeding. Only a few cases with enoxaparin- induced spontaneous hemorrhage have been reported in the [place] literature [3] . Spontaneous retroperitoneal hemorrhage could present as a rare life- threatening emergency with sudden onset of massive bleeding [4]. In this report the patient experienced shock due to a large retroperitoneal hematoma possibly from lesions of lumbar arteries. - Retroperitoneal hemorrhage caused by enoxaparin-induced spontaneous lumbar artery bleeding and treated by transcatheter arterial embolization: a case report * Alex Workman, Ezio Ferreira and Timoteo Burgess Cases [id number] DOI: 10.1186/[id number] Jacinta et al; licensee [employer] 2008 https://casesjournal.biomedcentral.com/articles/10.1186/[email or web address]
--- NOTE | 2016-12-21 12:15 | Progress Note ---
Provider Note Provider Note: Late note for clarification as requested by coders. -I agree with the additional diagnoses of hemoperitoneum, mild hypothermia, acute blood loss anemia due to intraabdominal bleeding with hemoperitoneum, and hemorrhagic shock. -The patient was admitted with a partial small bowel obstruction. I did not admit her, but based on the ED staff note and the admitting surgeons note, it does not appear she had bleeding at time of admission. She had some fluid in her pelvis, but it was around or less than 10 HU, consistent with physiologic or cyst or serous fluid, whereas blood is around 40-60 HU. -Jc had a hgb drop from admission to hospital day 2. This appeared consistent with presenting with dehydration due to nausea/decreased intake/ vomiting, and then being fluid resuscitated with IV fluids. I do not believe this was indicative of any bleeding. -The bleeding she experienced was due to spontaneous retroperitoneal and intraabdominal hemorrhage from the vasculature of the root of the mesentery and the pancreatico-duodenal vasculature in my opinion. She was found on the ground but this was a sequelae of her hypotension. The bleeding was not traumatic in nature. -The total blood loss. Difficult for me to estimate. Quantifying the amount was not my primary concern during surgery. Having said that, it was certainly in excess of 2 L and could have been double or triple that. -Shock was hemorrhagic, not traumatic. Again, the bleed was spontaneous retroperitoneal/intraabdominal. -She was on low dose lovenox for DVT prophylaxis. My guess is that this lovenox had nothing at all to do with any of this. -At the heart of all this, I do not know why this happened, but it seems likely that she had some sort of vascular problem, which probably caused the partial small bowel obstruction secondarily. The partial small bowel obstruction had a waxing and waning course until the patient had massive bleeding late night/ youth career specialist of 10/23-10/24. -There is a part of my op note that talks about bleeding near the root of the mesentery near the appendix, this should say pancreas.
== END 2016-10-24 08:00 | disposition short-term general hospital (02) | DRG 356 ==
LOC: ER 02:59 → EH 09:13 → INTOOBSV 09:13 → EH 09:14 → UNDOADMIN 09:14 → 4N 10:36 → OBSVTOIN 10-22 16:21 → ICU 10-24 03:45
PROVIDERS: ATTEND Surgery
PROC: 0W3P0ZZ Control Bleeding in Gastrointestinal Tract, Open Approach (ICD-10-PCS; 2016-10-24)
PROC: 0DQV0ZZ Repair Mesentery, Open Approach (ICD-10-PCS; 2016-10-24)
PROC: 0FQG0ZZ Repair Pancreas, Open Approach (ICD-10-PCS; 2016-10-24)
PROC: 06Q Lower Veins, Repair (ICD-10-PCS; 2016-10-24)
PROC: 0D9670Z Drainage of Stomach with Drainage Device, Via Natural or Artificial Opening (ICD-10-PCS; 2016-10-24)
PROC: 30243M1 Transfusion of Nonautologous Plasma Cryoprecipitate into Central Vein, Percutaneous Approach (ICD-10-PCS; 2016-10-24)
PROC: 05HM33Z Insertion of Infusion Device into Right Internal Jugular Vein, Percutaneous Approach (ICD-10-PCS; 2016-10-24)
PROC: B543ZZA Ultrasonography of Right Jugular Veins, Guidance (ICD-10-PCS; 2016-10-24)
PROC: 30243N1 Transfusion of Nonautologous Red Blood Cells into Central Vein, Percutaneous Approach (ICD-10-PCS; 2016-10-24)
PROC: 30243K1 Transfusion of Nonautologous Frozen Plasma into Central Vein, Percutaneous Approach (ICD-10-PCS; 2016-10-24)
PROC: 30243R1 Transfusion of Nonautologous Platelets into Central Vein, Percutaneous Approach (ICD-10-PCS; 2016-10-24)
PROC: 0W3H0ZZ Control Bleeding in Retroperitoneum, Open Approach (ICD-10-PCS; principal; 2016-10-24 05:30)
DX: K56.69 Other intestinal obstruction (principal); K66.1 Hemoperitoneum; T79.4XXA Traumatic shock, initial encounter; K55.019 Acute (reversible) ischemia of small intestine, extent unspecified; K55.9 Vascular disorder of intestine, unspecified; D62 Acute posthemorrhagic anemia; K86.89 Other specified diseases of pancreas; K76.89 Other specified diseases of liver; E78.5 Hyperlipidemia, unspecified; I10 Essential (primary) hypertension; I95.9 Hypotension, unspecified; R68.0 Hypothermia, not associated with low environmental temperature; M19.90 Unspecified osteoarthritis, unspecified site; W19.XXXA Unspecified fall, initial encounter; Y92.230 Patient room in hospital as the place of occurrence of the external cause; Z79.899 Other long term (current) drug therapy; Z85.41 Personal history of malignant neoplasm of cervix uteri; Z85.820 Personal history of malignant melanoma of skin; Z90.710 Acquired absence of both cervix and uterus; Z87.891 Personal history of nicotine dependence; Z82.61 Family history of arthritis
CPT/HCPCS: 36415; 36430; 70450; 74000; 74020; 74176; 74177; 790; 80048; 80053; 81001; 82150; 82803; 82962; 83690; 85025; 85027; 85610; 85730; 86850; 86900; 86901; 86920; 93005; 93010; 96361; 96374; 96375; 96376; 99285; C1751; G0378; J0131; J0295; J1170; J1650; J2250; J2270; J2310; J2370; J2405; J2704; J3010; J3490; J7030; J7060; P9016; P9017; P9035; S0028; S0119

== ENCOUNTER 2017-10-28 19:47 | Emergency (ER) | payer BC ==
[2017-10-28] MEDS ORDERED: NORMAL SALINE 1000 ML 1,000 ML IV ONE (20:13)
[2017-10-28] MEDS ORDERED: ONDANSETRON HCL INJ/PF 4 MG/2 ML SDV IV ONE ×2 (20:13→23:44)
--- NOTE | 2017-10-28 20:16 | ER Document Report ---
ED Medical Screen (RME) - General Chief Complaint: Abdominal Pain Stated Complaint: ABDOMINAL PAIN Time Seen by Provider: 10/28/17 20:12 Mode of Arrival: Wheelchair Information source: Patient TRAVEL OUTSIDE OF THE [place] IN LAST 30 DAYS: No - HPI Patient complains to provider of: abd pain Onset: This afternoon - pt with h/o intestinal obstruction with onset of generalized abdominal pain earlier this afternoon with vomiting times 2 - Related Data Allergies/Adverse Reactions: No Known Drug Allergies Allergy (Verified 03/10/15 12:41) Past Medical History - Social History Chew tobacco use (# tins/day): No Frequency of alcohol use: None Drug Abuse: None - Past Medical History Cardiac Medical History: Reports: Hx Hypercholesterolemia, Hx Hypertension Denies: Hx Congestive Heart Failure, Hx Coronary Artery Disease, Hx Heart Attack Pulmonary Medical History: Denies: Hx Asthma, Hx Bronchitis, Hx COPD, Hx Pneumonia, Hx Tuberculosis Neurological Medical History: Denies: Hx Cerebrovascular Accident, Hx Seizures Renal/ Medical History: Denies: Hx End Stage Renal Disease, Hx Kidney Stones, Hx Peritoneal Dialysis Malignancy Medical History: Reports: Hx Cervical Cancer, Hx Skin Cancer - melanoma of the left arm 20 year ago. Patient underwent vaccine treatment. GI Medical History: Reports: Hx Gastroesophageal Reflux Disease, Hx Ulcer. Denies: Hx Cirrhosis Musculoskeltal Medical History: Reports Hx Arthritis - general, Denies Hx Multiple Sclerosis, Reports Hx Musculoskeletal Trauma Psychiatric Medical History: Denies: Hx Bipolar Disorder, Hx Depression, Hx Schizophrenia Past Surgical History: Reports: Hx Abdominal Surgery - exp lap for gen abd bleeding, Hx Hysterectomy, Hx Orthopedic Surgery - Right rotator cuff surgery and left the knee meniscal surgery. Denies: Hx Pacemaker - Immunizations Immunizations up to date: Yes Hx Diphtheria, Pertussis, Tetanus Vaccination: Yes Physical Exam - Vital signs Vitals: Temp Pulse Resp BP Pulse Ox 97.7 F 97 18 144/92 H 100 10/28/17 19:55 10/28/17 19:55 10/28/17 19:55 10/28/17 19:55 10/28/17 19:55 Course - Vital Signs Vital signs: Temp Pulse Resp BP Pulse Ox 97.7 F 97 18 144/92 H 100 10/28/17 19:55 10/28/17 19:55 10/28/17 19:55 10/28/17 19:55 10/28/17 19:55
--- NOTE | 2017-10-28 20:41 | ER Document Report ---
ED GI/ - General Chief Complaint: Abdominal Pain Stated Complaint: ABDOMINAL PAIN Time Seen by Provider: 10/28/17 20:12 Mode of Arrival: Wheelchair Notes: Patient is a 61-year-old female that comes emergency department for chief complaint of abdominal pain and vomiting. She states that about 4 hours ago she started having nausea, began vomiting, and began having pain. She states pain is actually in her lower abdomen. She did have a bowel movement this afternoon and passed gas at that point but none since. She states last year she was treated with a nasogastric tube for a bowel obstruction, she states she had a diagnostic laparotomy but has never had bowel surgery or any surgery otherwise. She denies any daily medications, denies alcohol or smoking. TRAVEL OUTSIDE OF THE [place] IN LAST 30 DAYS: No - Related Data Allergies/Adverse Reactions: No Known Drug Allergies Allergy (Verified 03/10/15 12:41) Past Medical History - General Information source: Patient - Social History Smoking Status: Former Smoker Chew tobacco use (# tins/day): No Frequency of alcohol use: None Drug Abuse: None Lives with: Family Family History: Arthritis, Malignancy Patient has suicidal ideation: No Patient has homicidal ideation: No - Past Medical History Cardiac Medical History: Reports: Hx Hypercholesterolemia, Hx Hypertension Denies: Hx Congestive Heart Failure, Hx Coronary Artery Disease, Hx Heart Attack Pulmonary Medical History: Denies: Hx Asthma, Hx Bronchitis, Hx COPD, Hx Pneumonia, Hx Tuberculosis Neurological Medical History: Denies: Hx Cerebrovascular Accident, Hx Seizures Renal/ Medical History: Denies: Hx End Stage Renal Disease, Hx Kidney Stones, Hx Peritoneal Dialysis Malignancy Medical History: Reports: Hx Cervical Cancer, Hx Skin Cancer - melanoma of the left arm 20 year ago. Patient underwent vaccine treatment. GI Medical History: Reports: Hx Gastroesophageal Reflux Disease, Hx Ulcer. Denies: Hx Cirrhosis Musculoskeltal Medical History: Reports Hx Arthritis - general, Denies Hx Multiple Sclerosis, Reports Hx Musculoskeletal Trauma Psychiatric Medical History: Denies: Hx Bipolar Disorder, Hx Depression, Hx Schizophrenia Past Surgical History: Reports: Hx Abdominal Surgery - exp lap for gen abd bleeding, Hx Hysterectomy, Hx Orthopedic Surgery - Right rotator cuff surgery and left the knee meniscal surgery. Denies: Hx Pacemaker - Immunizations Immunizations up to date: Yes Hx Diphtheria, Pertussis, Tetanus Vaccination: Yes Review of Systems - Review of Systems Constitutional: No symptoms reported EENT: No symptoms reported Cardiovascular: No symptoms reported Respiratory: No symptoms reported Gastrointestinal: See HPI Genitourinary: No symptoms reported Female Genitourinary: No symptoms reported Musculoskeletal: No symptoms reported Skin: No symptoms reported Hematologic/Lymphatic: No symptoms reported Neurological/Psychological: No symptoms reported Physical Exam - Vital signs Vitals: Temp Pulse Resp BP Pulse Ox 97.7 F 97 18 144/92 H 100 10/28/17 19:55 10/28/17 19:55 10/28/17 19:55 10/28/17 19:55 10/28/17 19:55 Interpretation: Normal - General General appearance: Appears well In distress: None - HEENT Head: Normocephalic, Atraumatic Eyes: Normal Pupils: PERRL - Respiratory Respiratory status: No respiratory distress Chest status: Nontender Breath sounds: Normal Chest palpation: Normal - Cardiovascular Rhythm: Regular. No: Tachycardia Heart sounds: Normal auscultation, S1 appreciated, S2 appreciated Murmur: No - Abdominal Inspection: Other - Linear vertical midline scar Distension: No distension Bowel sounds: Normal Tenderness: Tender - Tender in the mid to right lower abdomen, this is reproducible, no guarding, rebound tenderness, or rigidity. Soft benign abdomen otherwise. Organomegaly: No organomegaly - Back Back: Normal, Nontender - Extremities General upper extremity: Normal inspection, Nontender, Normal color, Normal ROM , Normal temperature General lower extremity: Normal inspection, Nontender, Normal color, Normal ROM , Normal temperature, Normal weight bearing. No: Lesia's sign - Neurological Neuro grossly intact: Yes Cognition: Normal Orientation: AAOx4 Judith Coma Scale Eye Opening: Spontaneous Judith Coma Scale Verbal: Oriented [place] Coma Scale Motor: Obeys Commands Judith Coma Scale Total: 15 Speech: Normal Motor strength normal: LUE, RUE, LLE, RLE Sensory: Normal - Psychological Associated symptoms: Normal affect, Normal mood - Skin Skin Temperature: Warm Skin Moisture: Dry Skin Color: Normal Course - Re-evaluation Re-evalutation: Patient tender in the mid to right lower abdomen on examination, this is reproducible, no guarding, rigidity, or rebound tenderness. Leukocytosis at 13.2. No bandemia, fever, tachycardia, or hypotension. Because of pain on exam , reported history, CAT scan of the abdomen with oral and IV contrast was performed. Chemistry and urinalysis generally unremarkable. CAT scan showing mucosal thickening and stranding of the distal small bowel suggestive of infection versus inflammation. No signs of obstruction, normal appendix, no free air, abscess, or other abnormality noted. On reexamination patient sitting up, states she is pain-free. No nausea. Patient was given Zofran but no pain medication. Abdomen does not suggest surgical abdomen on examination. Discussed potentially being examined by a surgeon versus going home. After discussion decision was made for patient to have clear fluid diet, antibiotics, close follow-up with gastroenterology, with low threshold for return. Patient has had a normal colonoscopy within the past few years. Patient and family state satisfaction and agreement with plan. - Vital Signs Vital signs: Temp Pulse Resp BP Pulse Ox 97.8 F 95 20 140/92 H 98 10/29/17 01:00 10/29/17 01:00 10/29/17 01:00 10/29/17 01:00 10/29/17 01:00 - Laboratory Result Diagrams: 10/28/17 20:50 10/28/17 20:50 Laboratory results interpreted by me: 10/28/17 10/28/17 10/28/17 20:20 20:50 20:50 WBC 13.2 H Seg Neutrophils % 81.9 H Lymphocytes % 11.6 L Absolute Neutrophils 10.9 H Carbon Dioxide 20 L Glucose 159 H Urine Ketones 20 H Discharge - Discharge Clinical Impression: Lower abdominal pain Vomiting Qualifiers: Vomiting type: unspecified Vomiting Intractability: non-intractable Nausea presence: with nausea Qualified Code(s): R11.2 - Nausea with vomiting, unspecified Condition: Stable Disposition: HOME, SELF-CARE Additional Instructions: Your workup indicates an area of the end of the small bowel that is inflamed. I recommend clear fluid diet for the next 1-2 days, take the Cipro and Flagyl antibiotics as prescribed, take Zofran for nausea if needed, take the [place] for pain if needed. Please follow-up closely with gastroenterology on Tuesday as listed (call the number after 8 AM to set this up on Tuesday). Return if you worsen including returned or worsening pain, returned vomiting, fever of 100.4 or greater, bloody bowel movements, distention of the belly, or any other concerning symptoms. Prescriptions: Ciprofloxacin HCl [Cipro 500 mg Tablet] 500 mg PO BID #14 tablet Hydrocodone/Acetaminophen [[place] 5-325 mg Tablet] 1 tab PO ASDIR #10 tablet Metronidazole [Flagyl 500 mg Tablet] 500 mg PO TID #21 tablet Ondansetron [Zofran Odt 4 mg Tablet] 1 - 2 tab PO Q4H PRN #15 tab.rapdis PRN Reason: For Nausea/Vomiting Referrals: RAGHAV ALVARADO MD [ACTIVE STAFF] - 10/31/17 JEFF CASAS MD [ACTIVE STAFF] - 10/31/17
[2017-10-28 20:46] LABS: APPEARANCE,URINE SLIGHTLY-CLOUDY; BILIRUBIN,URINE NEGATIVE (NEGATIVE); COLOR,URINE YELLOW; GLUCOSE, URINE NEGATIVE (NEGATIVE); KETONES,URINE 20 mg/dL (NEGATIVE); LEUKOCYTE ESTERASE,URINE NEGATIVE (NEGATIVE); NITRITE,URINE NEGATIVE (NEGATIVE); PROTEIN,URINE NEGATIVE (NEGATIVE); URINE SPECIFIC GRAVITY 1.025; UROBILINOGEN,URINE NEGATIVE mg/dL (<2.0)
[2017-10-28 21:11] LABS: ABSOLUTE EOSINOPHILS # (AUTO) 0.1 10^3/uL (0.0-0.6); ABSOLUTE LYMPHOCYTES (AUTO) 1.5 10^3/uL (0.5-4.7); ABSOLUTE MONOCYTES (AUTO) 0.8 10^3/uL (0.1-1.4); ABSOLUTE NEUT (AUTO) 10.9 10^3/uL (1.7-8.2); BASOPHILS % (AUTO) 0.2 % (0-2); EOSINOPHILS % (AUTO) 0.5 % (0-6); HEMATOCRIT 43.7 % (36.0-47.0); HEMOGLOBIN 14.7 g/dL (12.0-15.5); LYMPHOCYTES % (AUTO) 11.6 % (13-45); MEAN CORPUSCULAR HEMOGLOBIN 30.1 pg (27.0-33.4); MEAN CORPUSCULAR HGB CONC 33.7 g/dL (32.0-36.0); MEAN CORPUSCULAR VOLUME 89 fl (80-97); MONOCYTES % (AUTO) 5.8 % (3-13); PLATELET COUNT 213 10^3/uL (150-450); RED BLOOD COUNT 4.89 10^6/uL (3.72-5.28); RED CELL DISTRIBUTION WIDTH 12.7 % (11.5-14.0); SEGMENTED NEUTROPHILS % (AUTO) 81.9 % (42-78); TOTAL CELLS COUNTED % (AUTO) 100 %; WHITE BLOOD COUNT 13.2 10^3/uL (4.0-10.5)
[2017-10-28 21:23] LABS: ALANINE AMINOTRANSFERASE 36 U/L (9-52); ALBUMIN 4.4 g/dL (3.5-5.0); ALKALINE PHOSPHATASE 82 U/L (38-126); ANION GAP 15 (5-19); ASPARTATE AMINO TRANSFERASE 28 U/L (14-36); BILIRUBIN,DIRECT 0.4 mg/dL (0.0-0.4); BILIRUBIN,TOTAL 0.7 mg/dL (0.2-1.3); BLOOD UREA NITROGEN 14 mg/dL (7-20); CALCIUM 9.7 mg/dL (8.4-10.2); CARBON DIOXIDE 20 mmol/L (22-30); CHLORIDE 104 mmol/L (98-107); GLUCOSE 159 mg/dL (75-110); LIPASE 70.2 U/L (23-300); SODIUM 139.3 mmol/L (137-145); TOTAL PROTEIN 7.6 g/dL (6.3-8.2)
--- NOTE | 2017-10-28 23:32 | RADIOLOGY REPORT (SQ) ---
EXAM DESCRIPTION: CT ABD/PELVIS WITH IV ORAL COMPLETED DATE/TIME: 10/28/2017 11:21 pm REASON FOR STUDY: abd pain (RLQ), vomiting; hx bowel obstruction COMPARISON: 10/24/2016 TECHNIQUE: CT scan of the abdomen and pelvis performed using helical scanning technique with dynamic intravenous contrast injection. Oral contrast given. Images reviewed with lung, soft tissue, and sachi ne windows. Reconstructed coronal and sagittal MPR images reviewed. Delayed images for evaluation of the urinary system also acquired. All images stored on PACS. All CT scanners at this facility use dose modulation, iterative reconstruction, and/or weight based d osing when appropriate to reduce radiation dose to as low as reasonably achievable (ALARA). [facility]: Dose Right [facility]: CareDose [facility]: Dose Right [facility]: Teradose 4D [facility]: [employer] CONTRAST TYPE AND DOSE: contrast/concentration: Isovue 370.00 mg/ml; Total Contrast Delivered: 74.0 ml; Total Saline Delivered: 66.0 ml RENAL FUNCTION: GFR > 60. RADIATION DOSE: CT Rad equipment meets quality standard of care and radiation dose reduction techniq ues were employed. CTDIvol: 8.6 - 12.1 mGy. DLP: 1073 mGy-cm.. LIMITATIONS: None. FINDINGS: LOWER CHEST: No significant findings. No nodules or infiltrates. LIVER: Diffuse hepatic steatosis with small areas of fatty sparing. No masses. No dilated ducts. SPLEEN: Normal size. No focal lesions. PANCREAS: No masses. No significant calcifications. No adjacent inflammation or peripancreatic fluid collections. Pancreatic duct not dilated. GALLBLADDER: No identified stones by CT criteria. No inflammatory changes to suggest cholecystitis. ADRENAL GLANDS: No significant masses or asymmetry. RIGHT KIDNEY AND URETER: No solid masses. No significant calcifications. No hydronephrosis or hyd roureter. LEFT KIDNEY AND URETER: Renal sinus cysts. No solid masses. No significant calcifications. No hy dronephrosis or hydroureter. AORTA AND VESSELS: No aneurysm. No dissection. Renal arteries, SMA, celiac without stenosis. RETROPERITONEUM: No retroperitoneal adenopathy, hemorrhage or masses. BOWEL AND PERITONEAL CAVITY: There are areas of mild mucosal thickening and perimesenteric stranding involving the distal small bowel suspicious for infectious or inflammatory bowel disease. Small and large bowel loops otherwise normal. No obstruction. APPENDIX: Normal. PELVIS: No mass. Small amount of free fluid within the pelvis. Normal bladder. ABDOMINAL WALL: No masses. No hernias. BONES: No significant or acute findings. OTHER: No other significant finding. IMPRESSION: AREAS OF MUCOSAL THICKENING AND PERIMESENTERIC STRANDING INVOLVING THE DISTAL SMALL NAFISA L SUSPICIOUS FOR INFECTIOUS OR INFLAMMATORY BOWEL DISEASE. NO TRANSITION POINT TO SUGGEST OBSTRUCTIO N. ADDITIONAL INCIDENTAL FINDINGS ABOVE. TECHNICAL DOCUMENTATION: JOB ID: [id number] Quality ID # [id number]: Final reports with documentation of one or more dose reduction techniques (e.g., Au tomated exposure control, adjustment of the mA and/or kV according to patient size, use of iterative reconstruction technique) 2010 [employer]- All Rights Reserved Reading location - IP/workstation name: [email or web address]
[2017-10-28] MEDS ORDERED: METRONIDAZOLE 500 MG TABLET PO ONE (23:44)
[2017-10-28] MEDS ORDERED: CIPROFLOXACIN HCL 500 MG TABLET PO ONE (23:44)
[2017-10-28] MEDS ORDERED: ONDANSETRON ODT 4 MG TAB (6 TAB/ER DISP) PO PRN (23:45)
[2017-10-28] MEDS ORDERED: HYDROCODONE/ACETAMINOPHEN 5-325 MG (6 TAB/ER DISP) PO PRN (23:45)
[2017-10-29 01:55] VITALS: BP 140/92
== END 2017-10-29 01:20 | disposition home or self-care (01) ==
LOC: ER 19:47
DX: R11.2 Nausea with vomiting, unspecified (principal); R10.30 Lower abdominal pain, unspecified; Z87.891 Personal history of nicotine dependence; E78.00 Pure hypercholesterolemia, unspecified; I10 Essential (primary) hypertension
CPT/HCPCS: 96376; 99284; 96361; 96374; 36415; 83690; 85025; 80053; 81001; 74177; J2405 ×2; J7030

== ENCOUNTER → 2017-11-08 | Outpatient (CLI) | payer BC ==
[2017-11-08 18:15] LABS: INTERNATIONAL RATION (INR) 0.87; PROTHROMBIN TIME 12.4 SEC (11.4-15.4)
[2017-11-08 18:16] LABS: PARTIAL THROMBOPLASTIN TIME 29.1 SEC (23.5-35.8)
[2017-11-08 18:33] LABS: PFA ADP 71 (56-106); PFA EPI 95 (55-179)
== END ==
LOC: OD 17:11
PROVIDERS: ATTEND Internal Medicine Hematology & Oncology
DX: K66.1 Hemoperitoneum (principal)
CPT/HCPCS: 36415; 82728; 85576; 85610; 85730

== ENCOUNTER 2017-11-11 07:46 | Day surgery (SDC) | payer BC ==
[2017-11-11] MEDS ORDERED: LIDOCAINE 2% INJ-PF (20 MG/ML) 10 ML AMPUL ONE (10:23)
[2017-11-11] MEDS ORDERED: MIDAZOLAM 2 MG/2 ML INJ ONE (10:24)
[2017-11-11] MEDS ORDERED: PROPOFOL INJ 200 MG/20 ML VIAL IV ONE (10:24)
[2017-11-11] MEDS ORDERED: PROMETHAZINE HCL INJ 25 MG/1 ML VIAL IV PRN ×2 (10:43)
[2017-11-11] MEDS ORDERED: DIPHENHYDRAMINE HCL 50 MG/ML VIAL IV PRN (10:43)
[2017-11-11] MEDS ORDERED: FENTANYL CITRATE INJ/PF 100 MCG/2 ML AMPUL IV PRN ×3 (10:43)
[2017-11-11] MEDS ORDERED: MORPHINE SULFATE 10 MG/ML INJ IV PRN (10:43)
[2017-11-11] MEDS ORDERED: MEPERIDINE HCL/PF INJ 25 MG/1 ML DISP.SYRIN IV PRN (10:43)
[2017-11-11] MEDS ORDERED: OXYCODONE-ACETAMINOPHEN 5-325 MG TABLET PO PRN ×2 (10:43)
--- NOTE | 2017-11-11 12:55 | Operative Report ---
Operative Report DATE OF SURGERY: 11/11/17 Operative Report: The risks, benefits and alternatives of the procedure including risks of bleeding, perforation requiring surgery I explained to the patient in detail and informed consent was obtained. Patient is brought back to the operating room and placed in a left, lateral decubital position. Timeout was called. Propofol medications administered. A rectal examination is done which did not reveal any masses, tears or fissures. An Olympus videoscope was inserted into the patient's rectum. The scope was then carefully advanced all the way to the cecum. The cecum was identified by the usual anatomical landmarks including the ileocecal valve as well as the appendiceal office. Photodocumentation is obtained. Scope was then sequentially pulled back via the various segments of the colon including the ascending colon, hepatic flexure, transverse colon, splenic flexure, descending colon and finally to rectosigmoid portions of the colon. Retroflexion maneuvers performed. The risks benefits and alternatives of the procedure explained to the patient in detail and informed consent is obtained .A GIF Olympus video scope was inserted into the patient's mouth and hypopharynx, the esophagus is identified intubated and insufflated, the scope was then advanced through the esophagus stomach and duodenum ,retroflexion maneuver is done ,the esophagus stomach and first and second portions of the duodenum examined PREOPERATIVE DIAGNOSIS: Abnormal CT scan. Previous history of Helicobacter pylori infection POSTOPERATIVE DIAGNOSIS: Gastritis status post biopsy rule out Helicobacter pylori. Relatively normal colonoscopy. Random biopsies obtained to rule out lymphocytic, microscopic, collagenous colitis. Internal hemorrhoids. Intubation of terminal ileum is done does not appear to have any significant thickening suggestive of Crohn's disease. OPERATION: Colonoscopy with biopsy. EGD with biopsy SURGEON: JEFF CASAS ANESTHESIA: LMAC TISSUE REMOVED OR ALTERED: As noted above. COMPLICATIONS: None. ESTIMATED BLOOD LOSS: None. INTRAOPERATIVE FINDINGS: As noted above. PROCEDURE: Patient tolerated procedure well. No immediate postprocedure complications are noted. Patient discharged in good condition. Discharge date 11/11/2017. Discharge diet: Regular. Discharge activity: Regular. We will await biopsies. Patient is instructed call the office or proceed to the emergency room should there be any further problems or questions. We will await pathology.
[2017-11-11 12:57] VITALS: BP 148/88
== END 2017-11-11 12:40 | disposition home or self-care (01) ==
LOC: OROUT 07:46
PROVIDERS: ATTEND Internal Medicine Gastroenterology
PROC: 0DB68ZX Excision of Stomach, Via Natural or Artificial Opening Endoscopic, Diagnostic (ICD-10-PCS; principal; 2017-11-11 10:00)
PROC: 0DBF8ZX Excision of Right Large Intestine, Via Natural or Artificial Opening Endoscopic, Diagnostic (ICD-10-PCS; 2017-11-11 10:00)
DX: K29.50 Unspecified chronic gastritis without bleeding (principal); K62.5 Hemorrhage of anus and rectum; M19.90 Unspecified osteoarthritis, unspecified site; I10 Essential (primary) hypertension; Z79.899 Other long term (current) drug therapy; Z87.19 Personal history of other diseases of the digestive system
CPT/HCPCS: 43239; 45380; 88305 ×2; J2250; J2704; J3490; 813

== ENCOUNTER 2019-01-23 09:16 | Emergency (ER) | payer BC ==
[2019-01-23] MEDS ORDERED: MORPHINE SULFATE 10 MG/ML INJ IV ONE (10:47)
[2019-01-23] MEDS ORDERED: ONDANSETRON HCL INJ/PF 4 MG/2 ML SDV IV ONE (10:47)
--- NOTE | 2019-01-23 10:50 | ER Document Report ---
ED Medical Screen (RME) - General Chief Complaint: Abdominal Pain Stated Complaint: ABDOMINAL PAIN Time Seen by Provider: 01/23/19 10:42 Primary Care Provider: CONOR MARTE MD [Primary Care Provider] - Follow up as needed Mode of Arrival: Ambulatory Information source: Patient TRAVEL OUTSIDE OF THE [place] IN LAST 30 DAYS: No - HPI Patient complains to provider of: ABDO PAIN, N/V Notes: 01/23/19 10:48 Patient here with complaints of nausea, vomiting and abdominal pain. This started this morning. Patient has a history of prior bowel obstructions and states that this feels similar to previous bowel obstructions. Exam No distress, nontoxic. Patient does appear to be uncomfortable. Lungs clear and equal throughout. Mild tachycardia. Generalized abdominal tenderness with mild distention on limited triage abdominal exam. Plan CBC, CMP, lipase, urinalysis. CT abdomen pelvis with IV and p.o. contrast. Morphine and Zofran. An initial examination was made on the patient as part of the triage process, and it was determined a more comprehensive evaluation was necessary. Initial labs were ordered and patient was transferred to another provider in the ED who assumed care and finished evaluation and plan. - Related Data Allergies/Adverse Reactions: No Known Drug Allergies Allergy (Verified 01/23/19 09:16) Past Medical History - Past Medical History Cardiac Medical History: Reports: Hx Hypercholesterolemia, Hx Hypertension - NO LONGER HAVE Denies: Hx Congestive Heart Failure, Hx Coronary Artery Disease, Hx Heart Attack Pulmonary Medical History: Denies: Hx Asthma, Hx Bronchitis, Hx COPD, Hx Pneumonia, Hx Tuberculosis Neurological Medical History: Denies: Hx Cerebrovascular Accident, Hx Seizures Renal/ Medical History: Denies: Hx End Stage Renal Disease, Hx Kidney Stones, Hx Peritoneal Dialysis Malignancy Medical History: Reports: Hx Cervical Cancer, Hx Skin Cancer - melanoma of the left arm 20 year ago. Patient underwent vaccine treatment. GI Medical History: Reports: Hx Gastroesophageal Reflux Disease, Hx Ulcer. Denies: Hx Cirrhosis Musculoskeltal Medical History: Reports Hx Arthritis - general, Denies Hx Multiple Sclerosis, Reports Hx Musculoskeletal Trauma Psychiatric Medical History: Denies: Hx Bipolar Disorder, Hx Depression, Hx Schizophrenia Past Surgical History: Reports: Hx Abdominal Surgery - exp lap for gen abd bleeding, Hx Hysterectomy, Hx Orthopedic Surgery - Right rotator cuff surgery and left the knee meniscal surgery. Denies: Hx Pacemaker - Immunizations Immunizations up to date: Yes Hx Diphtheria, Pertussis, Tetanus Vaccination: Yes History of Influenza Vaccine for 06/2017 - 11/2017 Season: No Physical Exam - Vital signs Vitals: Temp Pulse Resp BP Pulse Ox 98 F 109 H 16 138/94 H 100 01/23/19 09:20 01/23/19 09:20 01/23/19 09:20 01/23/19 09:20 01/23/19 09:20 Course - Vital Signs Vital signs: Temp Pulse Resp BP Pulse Ox 98 F 109 H 16 138/94 H 100 01/23/19 09:20 01/23/19 09:20 01/23/19 09:20 01/23/19 09:20 01/23/19 09:20 Doctor's Discharge - Discharge Referrals: CONOR MARTE MD [Primary Care Provider] - Follow up as needed
[2019-01-23 11:52] LABS: ABSOLUTE BASOPHILS # (AUTO) 0.1 10^3/uL (0.0-0.2); ABSOLUTE MONOCYTES (AUTO) 1.3 10^3/uL (0.1-1.4); ABSOLUTE NEUT (AUTO) 13.3 10^3/uL (1.7-8.2); BASOPHILS % (AUTO) 0.9 % (0-2); EOSINOPHILS % (AUTO) 0.2 % (0-6); HEMOGLOBIN 16.7 g/dL (12.0-15.5); LYMPHOCYTES % (AUTO) 6.2 % (13-45); MEAN CORPUSCULAR HEMOGLOBIN 30.7 pg (27.0-33.4); MEAN CORPUSCULAR HGB CONC 33.4 g/dL (32.0-36.0); MEAN CORPUSCULAR VOLUME 92 fl (80-97); MONOCYTES % (AUTO) 8.1 % (3-13); PLATELET COUNT 255 10^3/uL (150-450); RED BLOOD COUNT 5.44 10^6/uL (3.72-5.28); RED CELL DISTRIBUTION WIDTH 13.1 % (11.5-14.0); SEGMENTED NEUTROPHILS % (AUTO) 84.6 % (42-78); TOTAL CELLS COUNTED % (AUTO) 100 %; WHITE BLOOD COUNT 15.7 10^3/uL (4.0-10.5)
[2019-01-23 12:05] LABS: APPEARANCE,URINE SLIGHTLY-CLOUDY; BILIRUBIN,URINE NEGATIVE (NEGATIVE); COLOR,URINE YELLOW; GLUCOSE, URINE NEGATIVE (NEGATIVE); KETONES,URINE 20 mg/dL (NEGATIVE); LEUKOCYTE ESTERASE,URINE NEGATIVE (NEGATIVE); NITRITE,URINE NEGATIVE (NEGATIVE); PROTEIN,URINE NEGATIVE (NEGATIVE); URINE SPECIFIC GRAVITY 1.025; UROBILINOGEN,URINE NEGATIVE mg/dL (<2.0)
--- NOTE | 2019-01-23 12:13 | ER Document Report ---
ED GI/ - General Chief Complaint: Abdominal Pain Stated Complaint: ABDOMINAL PAIN Time Seen by Provider: 01/23/19 10:42 Primary Care Provider: CONOR MARTE MD [ACTIVE STAFF] - Follow up as needed Mode of Arrival: Ambulatory Information source: Patient Notes: 63-year-old female that presents today with the slow development of right lower quadrant nonradiating abdominal "pain" early this morning. Vomiting x5. No diarrhea. Normal bowel movement this morning. No fevers, chest pain, or dysuria. Patient has a history of a hysterectomy with a complicated bowel obstruction in 2017 causing "bleeding out". Supposedly she had an obstruction that did not require surgical intervention and prior to discharge the patient started to have excessive bleeding in the the abdomen. They supposedly did a partial laparotomy here and then sent the patient [facility]. They never found exactly the bleeding source, but they believe it was from mesenteric bleed according to patient report. I am not able to see Vangiejanis's operative notes. She states that the pain is actually improved at this moment. TRAVEL OUTSIDE OF THE [place] IN LAST 30 DAYS: No - Related Data Allergies/Adverse Reactions: No Known Drug Allergies Allergy (Verified 01/23/19 09:16) Past Medical History - General Information source: Patient - Social History Smoking Status: Former Smoker Family History: Arthritis, Malignancy Patient has suicidal ideation: No Patient has homicidal ideation: No - Past Medical History Cardiac Medical History: Reports: Hx Hypercholesterolemia, Hx Hypertension - NO LONGER HAVE Denies: Hx Congestive Heart Failure, Hx Coronary Artery Disease, Hx Heart Attack Pulmonary Medical History: Denies: Hx Asthma, Hx Bronchitis, Hx COPD, Hx Pneumonia, Hx Tuberculosis Neurological Medical History: Denies: Hx Cerebrovascular Accident, Hx Seizures Renal/ Medical History: Denies: Hx End Stage Renal Disease, Hx Kidney Stones, Hx Peritoneal Dialysis Malignancy Medical History: Reports: Hx Cervical Cancer, Hx Skin Cancer - melanoma of the left arm 20 year ago. Patient underwent vaccine treatment. GI Medical History: Reports: Hx Gastroesophageal Reflux Disease, Hx Ulcer. Denies: Hx Cirrhosis Musculoskeletal Medical History: Reports Hx Arthritis - general, Denies Hx Multiple Sclerosis, Reports Hx Musculoskeletal Trauma Psychiatric Medical History: Denies: Hx Bipolar Disorder, Hx Depression, Hx Schizophrenia Past Surgical History: Reports: Hx Abdominal Surgery - exp lap for gen abd bleeding, Hx Hysterectomy, Hx Orthopedic Surgery - Right rotator cuff surgery and left the knee meniscal surgery. Denies: Hx Pacemaker - Immunizations Immunizations up to date: Yes Hx Diphtheria, Pertussis, Tetanus Vaccination: Yes Review of Systems - Review of Systems Constitutional: denies: Fever EENT: denies: Eye discharge, Nose discharge Cardiovascular: denies: Chest pain, Palpitations Respiratory: denies: Short of breath Gastrointestinal: Vomiting Genitourinary: denies: Dysuria Musculoskeletal: denies: Leg swelling Skin: Other - no hives. denies: Rash Neurological/Psychological: Other - no slurred speech -: Yes All other systems reviewed and negative Physical Exam - Vital signs Vitals: Temp Pulse Resp BP Pulse Ox 98 F 109 H 16 138/94 H 100 01/23/19 09:20 01/23/19 09:20 01/23/19 09:20 01/23/19 09:20 01/23/19 09:20 Notes: Reviewed vital signs and nursing note as charted by RN. CONSTITUTIONAL: Alert and oriented and responds appropriately to questions. Well-appearing; well-nourished HEAD: Normocephalic; atraumatic EYES: Sclerae non-icteric ENT: Normal nose; no rhinorrhea; moist mucous membranes; pharynx without lesions noted NECK: Supple without meningismus; non-tender; no cervical lymphadenopathy, no masses CARD: Regular rate and rhythm; no murmurs; symmetric distal pulses RESP: Normal chest excursion without splinting or tachypnea; breath sounds clear and equal bilaterally ABD/GI: Normal bowel sounds; old midline abdominal scar; mildly tender to palpation in the right lower quadrant of the abdomen with no palpable masses, rebound or guarding, or abdominal bruits BACK: The back appears normal and is non-tender to palpation EXT: Normal ROM in all joints; non-tender to palpation; no edema SKIN: No acute lesions noted NEURO: CN 2-12 intact; 5/5 bilateral upper and lower extremity strength with sensation intact to light touch PSYCH: The patient's mood and manner are appropriate. Grooming and personal hygiene are appropriate. Course - Re-evaluation Re-evalutation: Given the history and physical, past surgical history, CT scan of the abdomen and pelvis as well as an EKG, liver panel, lipase, and urine has been ordered. I would like to evaluate for an acute abdominal obstruction or other acute intra-abdominal surgical pathology. 01/23/19 12:12 Labs initially as recorded. Elevated white blood cell count. Patient's pain is well controlled at this time. 01/23/19 12:49 EKG shows heart of 93, normal sinus rhythm, left axis deviation, LVH, minimal ST depressions in leads V4 and V5. 01/23/19 15:12 CT scan of the abdomen and pelvis as recorded. Patient's pain has subsided. Urine analysis shows no obvious infection. Patient still has no cough or shortness of breath. Still denies any and all chest pain. Troponin is pending. 01/23/19 16:18 Troponin as recorded. Patient is still pain-free. Patient will be discharged home with strict return precautions and follow-up with the primary care provider - Vital Signs Vital signs: Temp Pulse Resp BP Pulse Ox 98.0 F 92 21 H 109/71 100 01/23/19 14:37 01/23/19 14:37 01/23/19 16:04 01/23/19 16:04 01/23/19 16:04 - Laboratory Result Diagrams: 01/23/19 11:40 01/23/19 11:40 Laboratory results interpreted by me: 01/23/19 01/23/19 01/23/19 11:40 11:40 11:40 WBC 15.7 H RBC 5.44 H Hgb 16.7 H Hct 50.0 H Seg Neutrophils % 84.6 H Lymphocytes % 6.2 L Absolute Neutrophils 13.3 H Glucose 136 H Calcium 10.4 H AST 38 H Total Protein 8.9 H Urine Ketones 20 H Urine Blood SMALL H Discharge - Discharge Clinical Impression: Abdominal pain Qualifiers: Abdominal location: unspecified location Qualified Code(s): R10.9 - Unspecified abdominal pain Condition: Good Disposition: HOME, SELF-CARE Additional Instructions: Come back immediately for any return of pain, fevers, vomiting, or any other acute problems. Please follow-up with the primary care provider as we have discussed. Referrals: CONOR MARTE MD [ACTIVE STAFF] - Follow up as needed
[2019-01-23 12:20] LABS: ALANINE AMINOTRANSFERASE 50 U/L (9-52); ALBUMIN 4.9 g/dL (3.5-5.0); ALKALINE PHOSPHATASE 100 U/L (38-126); ANION GAP 15 (5-19); ASPARTATE AMINO TRANSFERASE 38 U/L (14-36); BILIRUBIN,DIRECT 0.3 mg/dL (0.0-0.4); BLOOD UREA NITROGEN 14 mg/dL (7-20); CALCIUM 10.4 mg/dL (8.4-10.2); CARBON DIOXIDE 25 mmol/L (22-30); CHLORIDE 102 mmol/L (98-107); GLUCOSE 136 mg/dL (75-110); LIPASE 70.9 U/L (23-300); POTASSIUM 4.5 mmol/L (3.6-5.0); SODIUM 141.7 mmol/L (137-145); TOTAL PROTEIN 8.9 g/dL (6.3-8.2)
--- NOTE | 2019-01-23 15:09 | RADIOLOGY REPORT (SQ) ---
EXAM DESCRIPTION: CT ABD/PELVIS WITH IV ORAL COMPLETED DATE/TIME: 01/23/2019 1:43 pm REASON FOR STUDY: ABDO PAIN, HX OF BOWEL OBSTRUCTION COMPARISON: 10/28/2017 TECHNIQUE: CT scan of the abdomen and pelvis performed using helical scanning technique with dynamic intravenous contrast injection. Oral contrast. Images reviewed with lung, soft tissue, and bone win dows. Reconstructed coronal and sagittal MPR images reviewed. Delayed images for evaluation of the ur inary system also acquired. All images stored on PACS. All CT scanners at this facility use dose modulation, iterative reconstruction, and/or weight based d osing when appropriate to reduce radiation dose to as low as reasonably achievable (ALARA). [facility]: Dose Right [facility]: CareDose [facility]: Dose Right [facility]: Teradose 4D [facility]: [employer] CONTRAST TYPE AND DOSE: contrast/concentration: Isovue 350.00 mg/ml; Total Contrast Delivered: 79.0 ml; Total Saline Delivered: 50.4 ml RENAL FUNCTION: BUN 14 creatinine 0.77 RADIATION DOSE: CT Rad equipment meets quality standard of care and radiation dose reduction techniq ues were employed. CTDIvol: 7.5 - 10.6 mGy. DLP: 982 mGy-cm.. LIMITATIONS: None. FINDINGS: LOWER CHEST: No significant findings. No nodules or infiltrates. LIVER: The liver is diffusely hypoattenuating. No masses. SPLEEN: Normal size. No focal lesions. PANCREAS: No masses. No significant calcifications. No adjacent inflammation or peripancreatic fluid collections. Pancreatic duct not dilated. GALLBLADDER: No identified stones by CT criteria. No inflammatory changes to suggest cholecystitis. ADRENAL GLANDS: No significant masses or asymmetry. RIGHT KIDNEY AND URETER: No solid masses. No significant calcifications. No hydronephrosis or hyd roureter. LEFT KIDNEY AND URETER: No solid masses. Parapelvic cysts. No significant calcifications. No hyd ronephrosis or hydroureter. AORTA AND VESSELS: No aneurysm. No dissection. Renal arteries, SMA, celiac without stenosis. RETROPERITONEUM: No retroperitoneal adenopathy, hemorrhage or masses. BOWEL AND PERITONEAL CAVITY: No masses or inflammatory changes. No free fluid or peritoneal masses. APPENDIX: Normal. PELVIS: No mass. No free fluid. Normal bladder. ABDOMINAL WALL: No masses. No hernias. BONES: No significant or acute findings. OTHER: No other significant finding. IMPRESSION: Hepatic steatosis. No bowel mass or obstruction. TECHNICAL DOCUMENTATION: JOB ID: [id number] Quality ID # [id number]: Final reports with documentation of one or more dose reduction techniques (e.g., Au tomated exposure control, adjustment of the mA and/or kV according to patient size, use of iterative reconstruction technique) 2010 [employer]- All Rights Reserved Reading location - IP/workstation name: [email or web address]
[2019-01-23 16:25] VITALS: BP 121/82
--- NOTE | 2019-01-24 10:23 | EKG REPORT ---
SEVERITY:- ABNORMAL ECG - SINUS RHYTHM LVH WITH SECONDARY REPOLARIZATION ABNORMALITY : Confirmed by: Puja Johnson 24-Jan-2019 10:23:22
== END 2019-01-23 16:31 | disposition home or self-care (01) ==
LOC: ER 09:16
DX: R10.31 Right lower quadrant pain (principal); R11.10 Vomiting, unspecified; E78.00 Pure hypercholesterolemia, unspecified; Z90.710 Acquired absence of both cervix and uterus
CPT/HCPCS: 93005; 99284; 96374; 96375; 36415; 83690; 85025; 80053; 81001; 84484; 74177; 93010; J2270; J2405

== ENCOUNTER 2020-02-23 06:29 | Emergency (ER) | payer BC ==
[2020-02-23 07:20] LABS: ABSOLUTE BASOPHILS # (AUTO) 0.1 10^3/uL (0.0-0.2); ABSOLUTE LYMPHOCYTES (AUTO) 1.2 10^3/uL (0.5-4.7); ABSOLUTE MONOCYTES (AUTO) 1.1 10^3/uL (0.1-1.4); ABSOLUTE NEUT (AUTO) 15.1 10^3/uL (1.7-8.2); BASOPHILS % (AUTO) 0.4 % (0-2); EOSINOPHILS % (AUTO) 0.1 % (0-6); HEMATOCRIT 50.1 % (36.0-47.0); HEMOGLOBIN 17.1 g/dL (12.0-15.5); LYMPHOCYTES % (AUTO) 6.7 % (13-45); MEAN CORPUSCULAR HEMOGLOBIN 31.2 pg (27.0-33.4); MEAN CORPUSCULAR HGB CONC 34.2 g/dL (32.0-36.0); MEAN CORPUSCULAR VOLUME 91 fl (80-97); MONOCYTES % (AUTO) 6.2 % (3-13); PLATELET COUNT 293 10^3/uL (150-450); SEGMENTED NEUTROPHILS % (AUTO) 86.6 % (42-78); TOTAL CELLS COUNTED % (AUTO) 100 %; WHITE BLOOD COUNT 17.5 10^3/uL (4.0-10.5)
[2020-02-23 07:43] LABS: ALBUMIN 4.8 g/dL (3.5-5.0); ALKALINE PHOSPHATASE 98 U/L (38-126); ANION GAP 15 (5-19); ASPARTATE AMINO TRANSFERASE 37 U/L (14-36); BILIRUBIN,TOTAL 0.9 mg/dL (0.2-1.3); BLOOD UREA NITROGEN 18 mg/dL (7-20); CALCIUM 10.7 mg/dL (8.4-10.2); CARBON DIOXIDE 22 mmol/L (22-30); CHLORIDE 100 mmol/L (98-107); GLUCOSE 201 mg/dL (75-110); POTASSIUM 4.3 mmol/L (3.6-5.0); TOTAL PROTEIN 8.4 g/dL (6.3-8.2)
[2020-02-23] MEDS ORDERED: NORMAL SALINE 1000 ML 1,000 ML IV ONE ×2 (08:05→13:01)
[2020-02-23] MEDS ORDERED: ONDANSETRON HCL INJ/PF 4 MG/2 ML SDV IV ONE (08:05)
[2020-02-23] MEDS ORDERED: MORPHINE SULFATE 10 MG/ML INJ IV ONE (08:07)
[2020-02-23] MEDS ORDERED: PANTOPRAZOLE SODIUM 40 MG VIAL IV ONE (08:11)
--- NOTE | 2020-02-23 08:18 | RADIOLOGY REPORT (SQ) ---
EXAM DESCRIPTION: ACUTE ABDOMEN SERIES IMAGES COMPLETED DATE/TIME: 02/23/2020 8:05 am REASON FOR STUDY: abd pain COMPARISON: None. NUMBER OF VIEWS: Three views. TECHNIQUE: Frontal chest, supine abdomen and upright/decubitus abdomen radiographic images acquired. LIMITATIONS: None. FINDINGS: CHEST: Lungs clear of infiltrates. FREE AIR: None. No abnormal gas collections. BOWEL GAS PATTERN: Few mid abdominal small bowel loops without air-fluid levels. No bowel distention . Colonic fecal material. CALCIFICATIONS: No suspicious calcifications. HARDWARE: Extensive surgical clips. SOFT TISSUES: No gross mass or suggestion of organomegaly. BONES: No acute fracture. No worrisome bone lesions. OTHER: No other significant finding. IMPRESSION: Most likely adynamic ileus. TECHNICAL DOCUMENTATION: JOB ID: [id number] 2010 [employer]- All Rights Reserved Reading location - IP/workstation name: [email or web address]
[2020-02-23 08:27] LABS: INTERNATIONAL RATION (INR) 0.92; PROTHROMBIN TIME 12.4 SEC (11.4-15.4)
[2020-02-23 08:28] LABS: PARTIAL THROMBOPLASTIN TIME 25.1 SEC (23.5-35.8)
--- NOTE | 2020-02-23 09:47 | RADIOLOGY REPORT (SQ) ---
EXAM DESCRIPTION: CHEST SINGLE VIEW IMAGES COMPLETED DATE/TIME: 02/23/2020 9:32 am REASON FOR STUDY: post NG tube insertion COMPARISON: None. EXAM PARAMETERS: NUMBER OF VIEWS: One view. TECHNIQUE: Single frontal radiographic view lower chest upper abdomen RADIATION DOSE: NA LIMITATIONS: None. FINDINGS: Limited evaluation of the chest. BONES: No acute findings. HARDWARE: NG tube present in the stomach. OTHER: No other significant finding. IMPRESSION: NG tube tip in the fundus of the stomach. TECHNICAL DOCUMENTATION: JOB ID: [id number] 2010 [employer]- All Rights Reserved Reading location - IP/workstation name: [email or web address]
--- NOTE | 2020-02-23 11:19 | EKG REPORT ---
SEVERITY:- ABNORMAL ECG - SINUS TACHYCARDIA REPOL ABNRM SUGGESTS ISCHEMIA, ANT-LAT LEADS : Confirmed by: Andres Rogers MD 23-Feb-2020 11:18:53
--- NOTE | 2020-02-23 12:27 | RADIOLOGY REPORT (SQ) ---
EXAM DESCRIPTION: CT ABD/PELVIS WITH IV ORAL IMAGES COMPLETED DATE/TIME: 02/23/2020 12:13 pm REASON FOR STUDY: abd pain/v COMPARISON: 01/23/2019 and 10/28/2017 TECHNIQUE: CT scan of the abdomen and pelvis performed using helical scanning technique with dynamic intravenous contrast injection. No oral contrast. Images reviewed with lung, soft tissue, and bone windows. Reconstructed coronal and sagittal MPR images reviewed. Delayed images for evaluation of the urinary system also acquired. All images stored on PACS. All CT scanners at this facility use dose modulation, iterative reconstruction, and/or weight based d osing when appropriate to reduce radiation dose to as low as reasonably achievable (ALARA). [facility]: Dose Right [facility]: CareDose [facility]: Dose Right [facility]: Teradose 4D [facility]: [employer] CONTRAST TYPE AND DOSE: 79 mL Omnipaque 350- low osmolar. RENAL FUNCTION: BUN 18; creatinine 0.85 RADIATION DOSE: CT Rad equipment meets quality standard of care and radiation dose reduction techniq ues were employed. CTDIvol: 8.1 - 11.5 mGy. DLP: 1035 mGy-cm.. LIMITATIONS: None. FINDINGS: LOWER CHEST: New LIVER: Hepatic steatosis with relative sparing about the gallbladder fossa. No mass. No intrahepati c biliary dilatation. SPLEEN: Normal size. No focal lesions. PANCREAS: No masses. No significant calcifications. No adjacent inflammation or peripancreatic fluid collections. Pancreatic duct not dilated. GALLBLADDER: No identified stones by CT criteria. No inflammatory changes to suggest cholecystitis. ADRENAL GLANDS: No significant masses or asymmetry. RIGHT KIDNEY AND URETER: No solid masses. No significant calcifications. No hydronephrosis or hyd roureter. LEFT KIDNEY AND URETER: No solid masses. Stable appearance of parapelvic cysts. No significant sherry cifications. No hydronephrosis or hydroureter. AORTA AND VESSELS: No aneurysm. No dissection. Renal arteries, SMA, celiac without stenosis. RETROPERITONEUM: No retroperitoneal adenopathy, hemorrhage or masses. BOWEL AND PERITONEAL CAVITY: No masses or inflammatory changes. No free fluid or peritoneal masses. APPENDIX: Normal. PELVIS: No masses. The bladder appears normal. Scant simple appearing free fluid is seen within the pelvic cul-de-sac. ABDOMINAL WALL: No masses. No hernias. BONES: No significant or acute findings. OTHER: No other significant finding. IMPRESSION: Hepatic steatosis. No evidence of acute intra-abdominal infectious/inflammatory process . TECHNICAL DOCUMENTATION: JOB ID: [id number] Quality ID # [id number]: Final reports with documentation of one or more dose reduction techniques (e.g., Au tomated exposure control, adjustment of the mA and/or kV according to patient size, use of iterative reconstruction technique) 2010 [employer]- All Rights Reserved Reading location - IP/workstation name: [email or web address]
[2020-02-23 13:02] LABS: APPEARANCE,URINE CLEAR; BILIRUBIN,URINE NEGATIVE (NEGATIVE); COLOR,URINE YELLOW; GLUCOSE, URINE NEGATIVE (NEGATIVE); KETONES,URINE TRACE mg/dL (NEGATIVE); LEUKOCYTE ESTERASE,URINE NEGATIVE (NEGATIVE); NITRITE,URINE NEGATIVE (NEGATIVE); PROTEIN,URINE NEGATIVE (NEGATIVE); URINE SPECIFIC GRAVITY 1.038; UROBILINOGEN,URINE NEGATIVE mg/dL (<2.0)
[2020-02-23 13:46] LABS: ALBUMIN 3.5 g/dL (3.5-5.0); ALKALINE PHOSPHATASE 61 U/L (38-126); ANION GAP 7 (5-19); ASPARTATE AMINO TRANSFERASE 27 U/L (14-36); BILIRUBIN,TOTAL 0.6 mg/dL (0.2-1.3); BLOOD UREA NITROGEN 14 mg/dL (7-20); CALCIUM 8.4 mg/dL (8.4-10.2); CARBON DIOXIDE 24 mmol/L (22-30); CHLORIDE 104 mmol/L (98-107); GLUCOSE 123 mg/dL (75-110); POTASSIUM 4.4 mmol/L (3.6-5.0); TOTAL PROTEIN 6.5 g/dL (6.3-8.2)
[2020-02-23 14:19] LABS: ABSOLUTE LYMPHOCYTES (AUTO) 1.2 10^3/uL (0.5-4.7); ABSOLUTE MONOCYTES (AUTO) 0.5 10^3/uL (0.1-1.4); ABSOLUTE NEUT (AUTO) 9.4 10^3/uL (1.7-8.2); BASOPHILS % (AUTO) 0.3 % (0-2); EOSINOPHILS % (AUTO) 0.2 % (0-6); HEMATOCRIT 41.4 % (36.0-47.0); MEAN CORPUSCULAR HEMOGLOBIN 31.4 pg (27.0-33.4); MEAN CORPUSCULAR VOLUME 93 fl (80-97); MONOCYTES % (AUTO) 4.6 % (3-13); PLATELET COUNT 221 10^3/uL (150-450); RED BLOOD COUNT 4.47 10^6/uL (3.72-5.28); RED CELL DISTRIBUTION WIDTH 12.8 % (11.5-14.0); SEGMENTED NEUTROPHILS % (AUTO) 83.9 % (42-78); TOTAL CELLS COUNTED % (AUTO) 100 %; WHITE BLOOD COUNT 11.1 10^3/uL (4.0-10.5)
[2020-02-23 14:22] LABS: HEMOGLOBIN 14.1 g/dL (12.0-15.5)
--- NOTE | 2020-02-23 14:39 | ER Document Report ---
Entered by SAMUEL BOWLES SCRIBE 02/23/20 0812 Acting as scribe for:TYLOR GALLOWAY MD ED GI/ - General Chief Complaint: Abdominal Pain Stated Complaint: ABDOMINAL PAIN,VOMITING,DIARRHEA Primary Care Provider: JOHANNA SEGOVIA PA-C [Primary Care Provider] - Follow up as needed Information source: Patient Notes: This 64 year old female patient presents to the emergency department today with abdominal pain that began last night. Patient reports belching, nausea, vomiting, and diarrhea that is yellow/black without blood. Patient states gasx and pepto bismol do not help relieve symptoms. Patient states she has a history of a bowel obstructions and a bleed from surgery x3 years ago. Patient reports chills and denies a fever or chest pain. TRAVEL OUTSIDE OF THE [place] IN LAST 30 DAYS: No - Related Data Allergies/Adverse Reactions: amoxicillin Allergy (Verified 02/23/20 08:32) Past Medical History - General Information source: Patient - Social History Smoking Status: Never Smoker Cigarette use (# per day): No Chew tobacco use (# tins/day): No Frequency of alcohol use: None Drug Abuse: None Family History: Reviewed & Not Pertinent, Arthritis, Malignancy Patient has homicidal ideation: No - Past Medical History Cardiac Medical History: Reports: Hx Hypercholesterolemia, Hx Hypertension - NO LONGER HAVE Malignancy Medical History: Reports: Hx Cervical Cancer, Hx Skin Cancer - melanoma of the left arm 20 year ago. Patient underwent vaccine treatment. GI Medical History: Reports: Hx Gastroesophageal Reflux Disease, Hx Ulcer Musculoskeletal Medical History: Reports Hx Arthritis - general, Reports Hx Musculoskeletal Trauma Past Surgical History: Reports: Hx Abdominal Surgery - exp lap for gen abd bleeding, Hx Hysterectomy, Hx Orthopedic Surgery - Right rotator cuff surgery and left the knee meniscal surgery - Immunizations Immunizations up to date: Yes Hx Diphtheria, Pertussis, Tetanus Vaccination: Yes Review of Systems - Review of Systems Constitutional: See HPI, Chills. denies: Fever EENT: No symptoms reported Cardiovascular: See HPI. denies: Chest pain Respiratory: No symptoms reported Gastrointestinal: See HPI, Abdominal pain, Diarrhea, Nausea, Vomiting. denies: Blood streaked bowels Genitourinary: No symptoms reported Female Genitourinary: No symptoms reported Musculoskeletal: No symptoms reported Skin: No symptoms reported Hematologic/Lymphatic: No symptoms reported Neurological/Psychological: No symptoms reported -: Yes All other systems reviewed and negative Physical Exam - Vital signs Vitals: Temp 98.1 F 02/23/20 06:39 - General General appearance: Alert In distress: Moderate - HEENT Head: Normocephalic, Atraumatic Eyes: Normal Pupils: PERRL Neck: Normal, Supple - Respiratory Respiratory status: No respiratory distress Chest status: Nontender Breath sounds: Normal Chest palpation: Normal - Cardiovascular Rhythm: Regular Heart sounds: Normal auscultation, S1 appreciated, S2 appreciated Murmur: No - Abdominal Inspection: Normal Bowel sounds: Normal Tenderness: Tender - epigastric region. No: Rebound Notes: Patient vomited during physical exam. - Extremities General upper extremity: Normal inspection. No: Edema General lower extremity: Normal inspection. No: Edema - Neurological Neuro grossly intact: Yes Cognition: Normal Orientation: AAOx4 Speech: Normal - Psychological Associated symptoms: Normal affect, Normal mood - Skin Skin Temperature: Warm Skin Moisture: Dry Skin Color: Normal Course - Re-evaluation Re-evalutation: 02/23/20 14:32 Patient is feeling much better at this time not having any abdominal pain nor any nausea and vomiting. Patient his condition has trended with labs returning back to close normal state white blood cell count total was 17.5 now down to 11.1. Also lactic acid was four 4.5 and is now 2.5. Patient's abdomen is soft nontender. - Vital Signs Vital signs: Temp Pulse Resp BP Pulse Ox 98.0 F 125 H 21 H 118/81 97 02/23/20 12:51 02/23/20 06:41 02/23/20 13:01 02/23/20 13:01 02/23/20 13:01 02/23/20 14:33 Patient shows tachycardia heart rate now down to 125 110. Patient is still receiving IV fluids to complete the second liter of normal saline. - Laboratory Result Diagrams: 02/23/20 13:20 02/23/20 13:20 Laboratory results interpreted by me: 02/23/20 02/23/20 02/23/20 07:00 07:00 07:00 WBC 17.5 H RBC 5.50 H Hgb 17.1 H Hct 50.1 H Lymph % (Auto) 6.7 L Absolute Neuts (auto) 15.1 H Seg Neutrophils % 86.6 H Sodium 136.9 L Glucose 201 H Lactic Acid 4.5 H Calcium 10.7 H AST 37 H Total Protein 8.4 H Urine Ketones 02/23/20 02/23/20 02/23/20 12:47 13:20 13:20 WBC 11.1 H RBC Hgb Hct Lymph % (Auto) 11.0 L Absolute Neuts (auto) 9.4 H Seg Neutrophils % 83.9 H Sodium Glucose Lactic Acid 2.5 H Calcium AST Total Protein Urine Ketones TRACE H 02/23/20 13:20 WBC RBC Hgb Hct Lymph % (Auto) Absolute Neuts (auto) Seg Neutrophils % Sodium 134.5 L Glucose 123 H Lactic Acid Calcium AST Total Protein Urine Ketones 02/23/20 14:35 Patient's troponin has been negative x2 at 0.012. - Diagnostic Test Radiology reviewed: Image reviewed, Reports reviewed Radiology results interpreted by me: 02/23/20 14:33 Twelve-lead EKG shows sinus tachycardia rate of 130 repolarization suggest ischemic anterior lateral leads. 02/23/20 14:35 CT scan of abdomen and pelvis shows no obstruction no infectious or inflammatory disease noted. The only abnormality was hepatic steatosis. Discharge - Discharge Clinical Impression: Nausea and vomiting Condition: Stable Disposition: HOME, SELF-CARE Instructions: Abdominal Pain ([facility]), Antinausea Medication ([facility]), Viral Syndrome ([facility]) Prescriptions: Omeprazole 40 mg PO DAILY #30 capsule. Ondansetron [Zofran Odt 4 mg Tablet] 1 - 2 tab PO Q4H PRN #15 tab.rapdis PRN Reason: For Nausea/Vomiting Referrals: JOHANNA SEGOVIA PA-C [Primary Care Provider] - Follow up as needed I personally performed the services described in the documentation, reviewed and edited the documentation which was dictated to the scribe in my presence, and it accurately records my words and actions.
[2020-02-23 14:55] VITALS: BP 128/80
== END 2020-02-23 15:29 | disposition home or self-care (01) ==
LOC: ER 06:29
DX: R11.2 Nausea with vomiting, unspecified (principal); R10.9 Unspecified abdominal pain; R19.7 Diarrhea, unspecified; R00.0 Tachycardia, unspecified; Z79.899 Other long term (current) drug therapy; Z88.1 Allergy status to other antibiotic agents; I10 Essential (primary) hypertension
CPT/HCPCS: 93005; 99284; 96361; 96374; 96375; 36415; 87040; 83605; 83690; 85025; 85610; 85730; 87070; 80053; 81001; 84484; 74022; 71045; 74177; 93010; J2270; C9113; J2405; J7030

== ENCOUNTER → 2020-03-19 | Outpatient (CLI) | payer BC ==
--- NOTE | 2020-03-19 12:58 | RADIOLOGY REPORT (SQ) ---
EXAM DESCRIPTION: NM HIDA SCAN WITH CCK IMAGES COMPLETED DATE/TIME: 03/19/2020 11:18 am REASON FOR STUDY: R11.2 NAUSEA WITH VOMITING, UNSPECIFIED R11.2 NAUSEA WITH VOMITING, UNSPECIFIED R 10.9 UNSPECIFIED ABDOMINAL PAIN COMPARISON: None. RADIONUCLIDE AND DOSE: DOSAGE RADIONUCLIDE: 5 millicuries Tc99m Mebrofenin. DOSAGE CCK: 1.4 micrograms. DOSAGE MORPHINE: Not required. The route of agent administration: Intravenous TECHNIQUE: Serial imaging right upper quadrant up to 60 minutes following injection of radionuclide. CCK injected after gallbladder visualized. LIMITATIONS: None. FINDINGS: LIVER: Normal visualization without areas of photopenia. INTRAHEPATIC BILE DUCTS: Normal size and no delay in visualization. COMMON BILE DUCT: Normal without dilatation. GALLBLADDER: Normal visualization. Calculated ejection fraction of 46%. Normal range is greater th an 35%. PHYSICAL RESPONSE: Patients presenting complaint was reproduced. OTHER: No other significant finding. IMPRESSION: No evidence a biliary dyskinesis with an ejection fraction of 46%. Patient's symptoms w ere temporarily reproduced after CCK injection. TECHNICAL DOCUMENTATION: JOB ID: [id number] 2010 [employer]- All Rights Reserved Reading location - IP/workstation name: [email or web address]
--- NOTE | 2020-03-19 14:12 | RADIOLOGY REPORT (SQ) ---
EXAM DESCRIPTION: U/S ABDOMEN LIMITED W/O DOP IMAGES COMPLETED DATE/TIME: 03/19/2020 9:37 am REASON FOR STUDY: R11.2 NAUSEA WITH VOMITING, UNSPECIFIED R11.2 NAUSEA WITH VOMITING, UNSPECIFIED R 10.9 UNSPECIFIED ABDOMINAL PAIN COMPARISON: None. TECHNIQUE: Dynamic and static grayscale images acquired of the abdomen and recorded on PACS. Additio nal selected color Doppler and spectral images recorded. LIMITATIONS: None. FINDINGS: PANCREAS: No masses. Visualized pancreatic duct normal caliber. LIVER: Increased echogenicity. No masses. LIVER VASCULATURE: Normal directional flow of the main portal vein and hepatic veins. GALLBLADDER: No stones. Normal wall thickness. No pericholecystic fluid. ULTRASOUND-DETECTED TAI'S SIGN: Negative. INTRAHEPATIC DUCTS AND COMMON DUCT: CBD and intrahepatic ducts normal caliber. No filling defects. AORTA: No aneurysm. RIGHT KIDNEY: Normal size, 10.1 cm. Normal echogenicity. No solid or suspicious masses. No hydroneph rosis. No calcifications. PERITONEAL AND RIGHT PLEURAL SPACE: No ascites or effusions. OTHER: No other significant findings. IMPRESSION: Hepatic steatosis. TECHNICAL DOCUMENTATION: JOB ID: [id number] 2010 [employer]- All Rights Reserved Reading location - IP/workstation name: [email or web address]
== END ==
LOC: RAD 07:48
PROVIDERS: ATTEND Internal Medicine Gastroenterology
DX: R10.84 Generalized abdominal pain (principal); K76.0 Fatty (change of) liver, not elsewhere classified
CPT/HCPCS: 76705; 78227; J2805; A9537; Q9969